=== PATIENT | female | born 1945 | race Caucasian/White ===

== ENCOUNTER 2019-02-07 10:02 | Emergency (ER) | payer MEDICARE, MEDICAID ==
--- NOTE | 2019-02-07 10:30 | ED.PDOC ---
History of Present Illness - General Chief Complaint: Respiratory Problem Stated Complaint: Hypoxemia and altered mental Time Seen by Provider: 02/07/19 10:27 Source: patient Exam Limitations: no limitations - History of Present Illness Comments: SHE IS BROUGHT BY AMBULANCE BECAUSE HER O2 SATURATIONS WERE IN THE LOW 89'S. SHE IS HOARSE BUT DENIES A SORE THROAT OR FEVER. SHE HAS DIABETES. ON ARRIVAL HER O2 SATS ARE 93-95 % A ROOM AIR. Timing/Duration: this morning Cough Quality/Degree: productive cough Possible Cause: no prior episodes Improving Factors: nothing Worsening Factors: nothing Associated Symptoms: denies symptoms Respiratory Risk Factors: no cause identified Allergies/Adverse Reactions: Allergies Eggs or Egg-derived Products Allergy (Verified 02/07/19 10:17) Home Medications: Ambulatory Orders Acetaminophen W/ Codeine [Tylenol W/ CODEINE #3] 1 ea PO Q4H PRN 02/07/19 Alum & Mag Hydrox-Simethicone [Maalox Max] 1 lida PO Q2H PRN 02/07/19 Amino Acids-Protein Hydrolysat [Pro-Stat] 17 gm PO BID 02/07/19 Artificial Tear Solution [Genteal Tears Liquid Drop 0.1-0.2-0.3 %] 1 vicenta OPHTH BID 02/07/19 Baclofen 10 mg PO PRN PRN 02/07/19 Cholecalciferol [D 1000] 1,000 unit PO DAILY 02/07/19 Docusate Sodium [Colace Cap] 100 mg PO DAILY 02/07/19 Emollient [Aquaphor Advanced Therapy] 41 % EX PRN PRN 02/07/19 Fenofibrate [Tricor] 145 mg PO DAILY 02/07/19 Ferrous Sulfate [Iron] 325 mg PO DAILY 02/07/19 Furosemide [Lasix] 20 mg PO DAILY #15 tab 02/07/19 Gabapentin 100 mg PO TID PRN 02/07/19 Hydrochlorothiazide 12.5 mg PO DAILY 02/07/19 Insulin Glargine [Basaglar Kwikpen] 75 unit SC BID 02/07/19 Insulin Lispro (Human) [Humalog] 100 unit SC PRN PRN 02/07/19 Ipratropium [place] 0.02 % INH PRN PRN 02/07/19 Lisinopril 10 mg PO DAILY 02/07/19 Magnesium Hydroxide [Rome Milk of Magnesia] 400 mg PO DAILY 02/07/19 Melatonin 5 mg PO DAILY 02/07/19 Multiple Vitamins W/ Minerals [Prosight] 1 tab PO BID 02/07/19 Nitroglycerin 0.4 mg Tab [Nitrostat] 0.4 mg SL PRN PRN 02/07/19 Omeprazole [Prilosec Cap] 20 mg PO TID 02/07/19 Potassium Chloride Tab [K-Dur] 20 meq PO DAILY #15 tab 02/07/19 Preparation H Suppository 1 ea VT Q6HR PRN 02/07/19 QUEtiapine FUMARATE [SEROquel] 25 mg PO DAILY 02/07/19 Quetiapine Fumarate 50 mg PO DAILY 02/07/19 Saxagliptin HCl [Onglyza] 2.5 mg PO DAILY 02/07/19 Sertraline HCl 100 mg PO DAILY 02/07/19 Tramadol HCl 50 mg PO Q4H PRN 02/07/19 Triamcinolone 0.1% Oint [Kenalog 0.1% Ointment] 1 applic TOP Q12H 02/07/19 diphenhydrAMINE HCL [Benadryl] 50 mg PO PRN PRN 02/07/19 Review of Systems - Review of Systems Constitutional: States: other - HOARSE EENTM: States: no symptoms reported Respiratory: States: cough Cardiology: States: no symptoms reported Gastrointestinal/Abdominal: States: no symptoms reported Genitourinary: States: no symptoms reported Musculoskeletal: States: no symptoms reported Skin: States: no symptoms reported Neurological: States: no symptoms reported Endocrine: States: no symptoms reported Hematologic/Lymphatic: States: no symptoms reported Past Medical History (General) - Patient Medical History Hx Stroke: No Hx of COPD: No Hx Congestive Heart Failure: No Hx Hypertension: Yes Hx Diabetes: Yes Surgical History: no surgical history - Vaccination History Hx Pneumococcal Vaccination: Yes Immunizations Up to Date: Yes - Social History Hx Tobacco Use: Yes Hx Alcohol Use: Yes Hx Substance Use: No Hx Substance Use Treatment: No Hx Depression: No - Activities of Daily Living Penitentiary[facility]Assisted Living (if applicable):: [facility] - Female History Patient is a Female of Child Bearing Age (10 -59 yrs old): No Patient : No Family Medical History - Family History Mother Family History: Unknown Living Status: Unknown Physical Exam - Physical Exam General Appearance: Alert, Well Developed Eye Exam: bilateral normal ENT Exam: normal ENT inspection, pharynx normal Neck: non-tender, full range of motion, supple, normal inspection Respiratory: chest non-tender, lungs clear, normal breath sounds, no respiratory distress, no accessory muscle use Cardiovascular/Chest: normal peripheral pulses, regular rate, rhythm, no edema, no gallop, no JVD, no murmur Gastrointestinal/Abdominal: normal bowel sounds, non tender, soft, no organomegaly, no pulsatile mass Extremity: normal range of motion, non-tender, normal inspection, no pedal edema Neurologic: alert, oriented x 3 Skin Exam: normal color Progress - Results/Orders Results/Orders: Laboratory Results WBC 8.5 K/mm3 (4.8-10.8) 02/07/19 10:40 RBC 4.29 M/mm3 (4.20-5.40) 02/07/19 10:40 Hgb 13.9 gm/dL (12.0-16.0) 02/07/19 10:40 Hct 41.8 % (36.0-47.0) 02/07/19 10:40 MCV 97.3 fl (81.0-99.0) 02/07/19 10:40 MCH 32.5 pg (27.0-31.0) H 02/07/19 10:40 MCHC 33.4 g/dL (33.0-37.0) 02/07/19 10:40 RDW 17.1 % (11.5-14.5) H 02/07/19 10:40 Plt Count 275 K/mm3 (130-400) 02/07/19 10:40 MPV 7.7 fl (7.40-10.4) 02/07/19 10:40 Absolute Neuts (auto) 7.10 K/uL (1.8-6.8) H 02/07/19 10:40 Absolute Lymphs (auto) 0.70 K/uL (1.0-3.4) L 02/07/19 10:40 Absolute Monos (auto) 0.70 K/uL (0.2-0.8) 02/07/19 10:40 Absolute Eos (auto) 0.10 K/uL (0.0-0.4) 02/07/19 10:40 Absolute Basos (auto) 0.00 K/uL (0.0-0.1) 02/07/19 10:40 Neutrophils % 82.8 % (42.0-78.0) H 02/07/19 10:40 Lymphocytes % 7.8 % (20.0-50.0) L 02/07/19 10:40 Monocytes % 7.8 % (2.0-9.0) 02/07/19 10:40 Eosinophils % 1.0 % (1.0-5.0) 02/07/19 10:40 Basophils % 0.6 % (0.0-2.0) 02/07/19 10:40 Sodium 138 mmol/L (135-145) 02/07/19 10:40 Potassium 3.7 mmol/L (3.6-5.0) 02/07/19 10:40 Chloride 97 mmol/L (101-111) L 02/07/19 10:40 Carbon Dioxide 28 mmol/L (21-31) 02/07/19 10:40 Anion Gap 16.7 (12-18) 02/07/19 10:40 BUN 29 mg/dL (7-18) H 02/07/19 10:40 Creatinine 1.34 mg/dL (0.6-1.3) H 02/07/19 10:40 BUN/Creatinine Ratio 21.6 (10-20) H 02/07/19 10:40 Random Glucose 99 mg/dL (70-105) 02/07/19 10:40 Serum Osmolality 281.5 mOsm/L (275-295) 02/07/19 10:40 Calcium 8.7 mg/dL (8.4-10.2) 02/07/19 10:40 Total Bilirubin 2.4 mg/dL (0.2-1.0) H* 02/07/19 10:40 AST 51 IU/L (10-42) H 02/07/19 10:40 ALT 28 IU/L (10-60) 02/07/19 10:40 Alkaline Phosphatase 196 IU/L (42-121) H 02/07/19 10:40 Serum Total Protein 8.2 gm/dL (6.4-8.2) 02/07/19 10:40 Albumin 3.3 g/dl (3.2-5.5) 02/07/19 10:40 Globulin 4.9 gm/dL (2.3-3.5) H 02/07/19 10:40 Albumin/Globulin Ratio 0.7 (1.1-1.9) L 02/07/19 10:40 THT CXT IS INCREASED VASCULAR MARKING, SUGGESTIVE OF CONGESTIVE HEART FAILURE. Departure - Departure Clinical Impression: Congestive heart failure (CHF) Qualifiers: Heart failure type: diastolic Heart failure chronicity: acute Qualified Code(s): I50.31 - Acute diastolic (congestive) heart failure Time of Disposition: 12:08 Disposition: Discharge to Home or Self Care Condition: Good Departure Forms: ED Discharge - Pt. Copy, Patient Portal Self Enrollment Instructions: Heart Failure, Adult Referrals: BROOKLYN ARIAS [Primary Care Provider] - 1-2 Weeks Prescriptions: Furosemide [Lasix] 20 mg PO DAILY #15 tab Potassium Chloride Tab [K-Dur] 20 meq PO DAILY #15 tab Home Medications: Ambulatory Orders Acetaminophen W/ Codeine [Tylenol W/ CODEINE #3] 1 ea PO Q4H PRN 02/07/19 Alum & Mag Hydrox-Simethicone [Maalox Max] 1 lida PO Q2H PRN 02/07/19 Amino Acids-Protein Hydrolysat [Pro-Stat] 17 gm PO BID 02/07/19 Artificial Tear Solution [Genteal Tears Liquid Drop 0.1-0.2-0.3 %] 1 vicenta OPHTH BID 02/07/19 Baclofen 10 mg PO PRN PRN 02/07/19 Cholecalciferol [D 1000] 1,000 unit PO DAILY 02/07/19 Docusate Sodium [Colace Cap] 100 mg PO DAILY 02/07/19 Emollient [Aquaphor Advanced Therapy] 41 % EX PRN PRN 02/07/19 Fenofibrate [Tricor] 145 mg PO DAILY 02/07/19 Ferrous Sulfate [Iron] 325 mg PO DAILY 02/07/19 Furosemide [Lasix] 20 mg PO DAILY #15 tab 02/07/19 Gabapentin 100 mg PO TID PRN 02/07/19 Hydrochlorothiazide 12.5 mg PO DAILY 02/07/19 Insulin Glargine [Basaglar Kwikpen] 75 unit SC BID 02/07/19 Insulin Lispro (Human) [Humalog] 100 unit SC PRN PRN 02/07/19 Ipratropium [place] 0.02 % INH PRN PRN 02/07/19 Lisinopril 10 mg PO DAILY 02/07/19 Magnesium Hydroxide [[place] Milk of Magnesia] 400 mg PO DAILY 02/07/19 Melatonin 5 mg PO DAILY 02/07/19 Multiple Vitamins W/ Minerals [Prosight] 1 tab PO BID 02/07/19 Nitroglycerin 0.4 mg Tab [Nitrostat] 0.4 mg SL PRN PRN 02/07/19 Omeprazole [Prilosec Cap] 20 mg PO TID 02/07/19 Potassium Chloride Tab [K-Dur] 20 meq PO DAILY #15 tab 02/07/19 Preparation H Suppository 1 ea VT Q6HR PRN 02/07/19 QUEtiapine FUMARATE [SEROquel] 25 mg PO DAILY 02/07/19 Quetiapine Fumarate 50 mg PO DAILY 02/07/19 Saxagliptin HCl [Onglyza] 2.5 mg PO DAILY 02/07/19 Sertraline HCl 100 mg PO DAILY 02/07/19 Tramadol HCl 50 mg PO Q4H PRN 02/07/19 Triamcinolone 0.1% Oint [Kenalog 0.1% Ointment] 1 applic TOP Q12H 02/07/19 diphenhydrAMINE HCL [Benadryl] 50 mg PO PRN PRN 02/07/19 Additional Instructions: FOLLOW UP WITH YOUR DOCTOR IN ONE WEEK.
--- NOTE | 2019-02-07 11:10 | RAD ---
EXAM DESCRIPTION: Chest,1 View CLINICAL HISTORY: 73 years Female, SOB COMPARISON: None. TECHNIQUE: Single frontal view of the chest. IMPRESSION: Cardiac silhouette is enlarged. Aorta is partially opacified. Severe bilateral perihilar fullness likely reflecting underlying vascular congestion. Coarse interstitial lung markings may represent pulmonary edema. No lobar consolidation. No pleural effusion or pneumothorax. Thoracic spondylosis. Electronically signed by: Lele Brown MD 02/07/2019 11:07 AM CDT
[2019-02-07] MEDS ORDERED: FUROSEMIDE INJ 20 MG/2 ML VIAL IV ONE (11:34)
[2019-02-07 13:55] VITALS: BP 139/73; TEMP 96.3; O2SAT 94
== END 2019-02-07 13:55 ==
LOC: ER 10:02
DX: I50.31 Acute diastolic (congestive) heart failure (principal); E11.9 Type 2 diabetes mellitus without complications; I10 Essential (primary) hypertension; Z87.891 Personal history of nicotine dependence; Z79.899 Other long term (current) drug therapy; Z79.4 Long term (current) use of insulin
CPT/HCPCS: 36415; 71045; 80053; 85025; J1940

== ENCOUNTER 2019-02-10 13:02 | Inpatient (IN) | payer MEDICARE, MEDICAID ==
[2019-02-10] MEDS ORDERED: IPRATROPIUM/ALBUTEROL 3 ML VIAL NEB ONE (13:13)
[2019-02-10] MEDS ORDERED: FUROSEMIDE INJ 40 MG/4 ML VIAL IV ONE (13:13)
--- NOTE | 2019-02-10 13:29 | ED.PDOC ---
History of Present Illness - General Chief Complaint: Respiratory Problem Stated Complaint: Shortness of breath Time Seen by Provider: 02/10/19 13:13 Source: patient, EMS Exam Limitations: no limitations - History of Present Illness Initial Comments: patient is brought in via EMS for shortness of breath and hypoxia down to the 70s. Patient states she started getting very short of breath this morning with cough with nonproductive sputum. She has a long history of having CHF, COPD, diabetes mellitus, and history of TIA. Patient states she came to the long term last July after her son moved away and she didn't have as much help at home. She does not normally require oxygen but does use breathing treatments. Her last breathing treatments for yesterday at the long term. Patient denies any fever or chills. She's had no chest pain but some shortness of breath with wheezing and she has noted that she's been more edematous than usual. Timing/Duration: 4-6 hours Severity: severe Activities at Onset: rest Possible Cause: frequent episodes Improving Factors: other - oxygen Worsening Factors: movement Associated Symptoms: cough, edema Allergies/Adverse Reactions: Allergies Eggs or Egg-derived Products Allergy (Verified 02/07/19 10:17) Home Medications: Ambulatory Orders Acetaminophen W/ Codeine [Tylenol W/ CODEINE #3] 1 ea PO Q4H PRN 02/07/19 Alum & Mag Hydrox-Simethicone [Maalox Max] 1 lida PO Q2H PRN 02/07/19 Amino Acids-Protein Hydrolysat [Pro-Stat] 17 gm PO BID 02/07/19 Artificial Tear Solution [Genteal Tears Liquid Drop 0.1-0.2-0.3 %] 1 vicenta OPHTH BID 02/07/19 Baclofen 10 mg PO PRN PRN 02/07/19 Cholecalciferol [D 1000] 1,000 unit PO DAILY 02/07/19 Docusate Sodium [Colace Cap] 100 mg PO DAILY 02/07/19 Emollient [Aquaphor Advanced Therapy] 41 % EX PRN PRN 02/07/19 Fenofibrate [Tricor] 145 mg PO DAILY 02/07/19 Ferrous Sulfate [Iron] 325 mg PO DAILY 02/07/19 Furosemide [Lasix] 20 mg PO DAILY #15 tab 02/07/19 Gabapentin 100 mg PO TID PRN 02/07/19 Hydrochlorothiazide 12.5 mg PO DAILY 02/07/19 Insulin Glargine [Basaglar Kwikpen] 75 unit SC BID 02/07/19 Insulin Lispro (Human) [Humalog] 100 unit SC PRN PRN 02/07/19 Ipratropium [place] 0.02 % INH PRN PRN 02/07/19 Lisinopril 10 mg PO DAILY 02/07/19 Magnesium Hydroxide [[place]ome Milk of Magnesia] 400 mg PO DAILY 02/07/19 Melatonin 5 mg PO DAILY 02/07/19 Multiple Vitamins W/ Minerals [Prosight] 1 tab PO BID 02/07/19 Nitroglycerin 0.4 mg Tab [Nitrostat] 0.4 mg SL PRN PRN 02/07/19 Omeprazole [Prilosec Cap] 20 mg PO TID 02/07/19 Potassium Chloride Tab [K-Dur] 20 meq PO DAILY #15 tab 02/07/19 Preparation H Suppository 1 ea [place] Q6HR PRN 02/07/19 QUEtiapine FUMARATE [SEROquel] 25 mg PO DAILY 02/07/19 Quetiapine Fumarate 50 mg PO DAILY 02/07/19 Saxagliptin HCl [Onglyza] 2.5 mg PO DAILY 02/07/19 Sertraline HCl 100 mg PO DAILY 02/07/19 Tramadol HCl 50 mg PO Q4H PRN 02/07/19 Triamcinolone 0.1% Oint [Kenalog 0.1% Ointment] 1 applic TOP Q12H 02/07/19 diphenhydrAMINE HCL [Benadryl] 50 mg PO PRN PRN 02/07/19 Review of Systems - Review of Systems Constitutional: States: no symptoms reported. Denies: chills, fever EENTM: States: no symptoms reported. Denies: ear pain, nose congestion, throat pain Respiratory: States: cough, short of breath, wheezing Cardiology: States: edema. Denies: chest pain, palpitations Gastrointestinal/Abdominal: States: no symptoms reported. Denies: abdominal pain, diarrhea, nausea, vomiting Genitourinary: States: no symptoms reported Musculoskeletal: States: no symptoms reported Past Medical History (General) - Patient Medical History Hx Stroke: Yes - TIA Hx of COPD: Yes Hx Congestive Heart Failure: Yes Hx Hypertension: Yes Hx Diabetes: Yes - Vaccination History Hx Pneumococcal Vaccination: Yes - Social History Hx Tobacco Use: Yes Hx Alcohol Use: Yes Hx Substance Use: No Hx Substance Use Treatment: No Hx Depression: No - Activities of Daily Living Senior Living/Assisted Living (if applicable):: [facility] - Female History Patient : No Family Medical History - Family History Mother Family History: Unknown Living Status: Unknown Physical Exam - Physical Exam General Appearance: Alert, Comfortable, Obese Eyes, Ears, Nose, Throat Exam: PERRL/EOMI, normal ENT inspection, TMs normal, pharynx normal, other - eyes are edematous Neck: non-tender, full range of motion, supple, normal inspection Respiratory: chest non-tender, decreased breath sounds, crackles - at bases bilaterally, wheezing Cardiovascular/Chest: normal peripheral pulses, regular rate, rhythm, JVD, other - 3 + pitting edema to knee Peripheral Pulses: radial,right: 2+, radial,left: 2+ Gastrointestinal/Abdominal: normal bowel sounds, non tender, soft Neurologic: alert, oriented x 3 Progress - Results/Orders Results/Orders: 02/10/19 13:13 Catheter:Miguel QSHIFT B-TYPE NATRIURETIC PEPTIDE/BNP Stat CARDIAC ENZYME GROUP Stat COMPLETE METABOLIC PROFILE Stat 02/10/19 13:14 URINALYSIS Stat 02/10/19 13:45 EKG STAT Laboratory Results WBC 10.0 K/mm3 (4.8-10.8) 02/10/19 13:13 RBC 4.29 M/mm3 (4.20-5.40) 02/10/19 13:13 Hgb 13.6 gm/dL (12.0-16.0) 02/10/19 13:13 Hct 40.9 % (36.0-47.0) 02/10/19 13:13 MCV 95.4 fl (81.0-99.0) 02/10/19 13:13 MCH 31.8 pg (27.0-31.0) H 02/10/19 13:13 MCHC 33.3 g/dL (33.0-37.0) 02/10/19 13:13 RDW 17.2 % (11.5-14.5) H 02/10/19 13:13 Plt Count 302 K/mm3 (130-400) 02/10/19 13:13 MPV 7.4 fl (7.40-10.4) 02/10/19 13:13 Absolute Neuts (auto) 8.90 K/uL (1.8-6.8) H 02/10/19 13:13 Absolute Lymphs (auto) 0.40 K/uL (1.0-3.4) L 02/10/19 13:13 Absolute Monos (auto) 0.60 K/uL (0.2-0.8) 02/10/19 13:13 Absolute Eos (auto) 0.00 K/uL (0.0-0.4) 02/10/19 13:13 Absolute Basos (auto) 0.00 K/uL (0.0-0.1) 02/10/19 13:13 Neutrophils % 89.2 % (42.0-78.0) H 02/10/19 13:13 Lymphocytes % 4.0 % (20.0-50.0) L 02/10/19 13:13 Monocytes % 6.5 % (2.0-9.0) 02/10/19 13:13 Eosinophils % 0.0 % (1.0-5.0) L 02/10/19 13:13 Basophils % 0.3 % (0.0-2.0) 02/10/19 13:13 Sodium 135 mmol/L (135-145) 02/10/19 13:13 Potassium 4.0 mmol/L (3.6-5.0) 02/10/19 13:13 Chloride 94 mmol/L (101-111) L 02/10/19 13:13 Carbon Dioxide 28 mmol/L (21-31) 02/10/19 13:13 Anion Gap 17.0 (12-18) 02/10/19 13:13 BUN 26 mg/dL (7-18) H 02/10/19 13:13 Creatinine 0.88 mg/dL (0.6-1.3) 02/10/19 13:13 BUN/Creatinine Ratio 29.5 (10-20) H 02/10/19 13:13 Random Glucose 174 mg/dL (70-105) H 02/10/19 13:13 Serum Osmolality 279.1 mOsm/L (275-295) 02/10/19 13:13 Calcium 8.4 mg/dL (8.4-10.2) 02/10/19 13:13 Total Bilirubin 2.9 mg/dL (0.2-1.0) H* 02/10/19 13:13 AST 47 IU/L (10-42) H 02/10/19 13:13 ALT 29 IU/L (10-60) 02/10/19 13:13 Alkaline Phosphatase 198 IU/L (42-121) H 02/10/19 13:13 Creatine Kinase 100 IU/L (26-140) 02/10/19 13:13 CK-MB (CK-2) 5.6 ng/mL (0.0-4.4) H* 02/10/19 13:13 CK-MB (CK-2) % Not Reportable 02/10/19 13:13 Troponin I 0.05 ng/mL (0.01-0.05) 02/10/19 13:13 Serum Total Protein 7.5 gm/dL (6.4-8.2) 02/10/19 13:13 Albumin 2.8 g/dl (3.2-5.5) L 02/10/19 13:13 Globulin 4.7 gm/dL (2.3-3.5) H 02/10/19 13:13 Albumin/Globulin Ratio 0.6 (1.1-1.9) L 02/10/19 13:13 Patient Name: BRE DEJESUS Gender: Female Date of : 1945 Referring Physician: TORY CASE Organization: [facility] Accession Number: [id number] Requested Date: February 10, 2019 13:13 Report Status: Final Requested Procedure: 1 Procedure Description: Chest,1 View Modality: CR Findings Reporting MD: Glenis Avery Fellow MD: Not available Dictation Time: Donation Worker: Not available Inhalation Therapy Teacher Date: EXAM DESCRIPTION: Chest,1 View CLINICAL HISTORY: 73 years Female shortness of breath COMPARISON: Portable chest 02/07/2019 TECHNIQUE: Portable AP view of the chest is obtained. Heart: Allowing for magnification factors related to AP portable technique and large body habitus , the heart is mildly enlarged. Vasculature: There is mild tortuosity and atherosclerosis of the aorta. There is no evidence of aortic aneurysm or acute findings. The pulmonary vascularity is normal. Mediastinum: There is a round masslike density in the right hilum which measures 2.3 cm x 2.3 cm. This may represent pulmonary vascular structures on end. A small mass or adenopathy in the right hilum is not excludable. Lungs: There is no focal consolidation in the lungs. Pleura: There is blunting of the right costophrenic angle consistent with scarring or a small pleural effusion. There is no left pleural fluid. There are no pneumothoraces. Osseous structures: Radiology [facility]. [address] [place] [address], [address] Floor [place], [place] T [phone] [email or web address] Report exported on SatFeb 10, 2019 14:09:46 [id number] - Page 2 of 2 There is no evidence of acute fracture, osseous destruction or osteoblastic lesions. There are diffuse enthesopathic changes including a rolling pattern of ossification in the thoracic spine consistent with diffuse idiopathic skeletal hyperostosis (DISH). Tubes and catheters: None Upper abdomen: No acute findings. Chest wall: Unremarkable. IMPRESSION: Mild cardiomegaly and right pleural fluid may indicate fluid overload/congestive heart failure. There is a round masslike density in the right hilum which measures 2.3 cm x 2.3 cm. This may represent pulmonary vascular structures on end. A small mass or adenopathy in the right hilum is not excludable. Recommend comparison to remote previous films to assess chronicity. Remainder of findings as described above - EKG/XRAY/CT EKG: Sinus, Tachy Comments: HR 105, normal QTC, intraventricular block Departure - Departure Clinical Impression: Congestive heart failure (CHF) Qualifiers: Heart failure type: systolic Heart failure chronicity: acute on chronic Qualified Code(s): I50.23 - Acute on chronic systolic (congestive) heart failure Disposition: Admit Patient Condition: Fair Departure Forms: ED Discharge - Pt. Copy, Patient Portal Self Enrollment Referrals: BROOKLYN ARIAS [Primary Care Provider] - 1-2 Weeks Home Medications: Ambulatory Orders Acetaminophen W/ Codeine [Tylenol W/ CODEINE #3] 1 ea PO Q4H PRN 02/07/19 Alum & Mag Hydrox-Simethicone [Maalox Max] 1 lida PO Q2H PRN 02/07/19 Amino Acids-Protein Hydrolysat [Pro-Stat] 17 gm PO BID 02/07/19 Artificial Tear Solution [Genteal Tears Liquid Drop 0.1-0.2-0.3 %] 1 vicenta OPHTH BID 02/07/19 Baclofen 10 mg PO PRN PRN 02/07/19 Cholecalciferol [D 1000] 1,000 unit PO DAILY 02/07/19 Docusate Sodium [Colace Cap] 100 mg PO DAILY 02/07/19 Emollient [Aquaphor Advanced Therapy] 41 % EX PRN PRN 02/07/19 Fenofibrate [Tricor] 145 mg PO DAILY 02/07/19 Ferrous Sulfate [Iron] 325 mg PO DAILY 02/07/19 Furosemide [Lasix] 20 mg PO DAILY #15 tab 02/07/19 Gabapentin 100 mg PO TID PRN 02/07/19 Hydrochlorothiazide 12.5 mg PO DAILY 02/07/19 Insulin Glargine [Basaglar Kwikpen] 75 unit SC BID 02/07/19 Insulin Lispro (Human) [Humalog] 100 unit SC PRN PRN 02/07/19 Ipratropium [place] 0.02 % INH PRN PRN 02/07/19 Lisinopril 10 mg PO DAILY 02/07/19 Magnesium Hydroxide [[place] Milk of Magnesia] 400 mg PO DAILY 02/07/19 Melatonin 5 mg PO DAILY 02/07/19 Multiple Vitamins W/ Minerals [Prosight] 1 tab PO BID 02/07/19 Nitroglycerin 0.4 mg Tab [Nitrostat] 0.4 mg SL PRN PRN 02/07/19 Omeprazole [Prilosec Cap] 20 mg PO TID 02/07/19 Potassium Chloride Tab [K-Dur] 20 meq PO DAILY #15 tab 02/07/19 Preparation H Suppository 1 ea [place] Q6HR PRN 02/07/19 QUEtiapine FUMARATE [SEROquel] 25 mg PO DAILY 02/07/19 Quetiapine Fumarate 50 mg PO DAILY 02/07/19 Saxagliptin HCl [Onglyza] 2.5 mg PO DAILY 02/07/19 Sertraline HCl 100 mg PO DAILY 02/07/19 Tramadol HCl 50 mg PO Q4H PRN 02/07/19 Triamcinolone 0.1% Oint [Kenalog 0.1% Ointment] 1 applic TOP Q12H 02/07/19 diphenhydrAMINE HCL [Benadryl] 50 mg PO PRN PRN 02/07/19 Decision To Admit - Decistion To Admit Decision to Admit Reason: Admit from ER Decision to Admit Date: 02/10/19 Decision to Admit Time: 14:26
--- NOTE | 2019-02-10 13:49 | RAD ---
EXAM DESCRIPTION: Chest,1 View CLINICAL HISTORY: 73 years Female shortness of breath COMPARISON: Portable chest 02/07/2019 TECHNIQUE: Portable AP view of the chest is obtained. Heart: Allowing for magnification factors related to AP portable technique and large body habitus , the heart is mildly enlarged. Vasculature: There is mild tortuosity and atherosclerosis of the aorta. There is no evidence of aortic aneurysm or acute findings. The pulmonary vascularity is normal. Mediastinum: There is a round masslike density in the right hilum which measures 2.3 cm x 2.3 cm. This may represent pulmonary vascular structures on end. A small mass or adenopathy in the right hilum is not excludable. Lungs: There is no focal consolidation in the lungs. Pleura: There is blunting of the right costophrenic angle consistent with scarring or a small pleural effusion. There is no left pleural fluid. There are no pneumothoraces. Osseous structures: There is no evidence of acute fracture, osseous destruction or osteoblastic lesions. There are diffuse enthesopathic changes including a rolling pattern of ossification in the thoracic spine consistent with diffuse idiopathic skeletal hyperostosis (DISH). Tubes and catheters: None Upper abdomen: No acute findings. Chest wall: Unremarkable. IMPRESSION: Mild cardiomegaly and right pleural fluid may indicate fluid overload/congestive heart failure. There is a round masslike density in the right hilum which measures 2.3 cm x 2.3 cm. This may represent pulmonary vascular structures on end. A small mass or adenopathy in the right hilum is not excludable. Recommend comparison to remote previous films to assess chronicity. Remainder of findings as described above. Electronically signed by: Glenis Avery MD 02/10/2019 1:46 PM CDT
--- NOTE | 2019-02-10 15:15 | HP ---
SUPERVISING PHYSICIAN: Maxx Chaudhari MD CHIEF COMPLAINT: Shortness of breath. HISTORY OF PRESENT ILLNESS: This is a 73 year-old female patient who lives at [facility]. She has had about a 2 to 3 day history of shortness of breath. She is oxygen dependent and a history of chronic obstructive pulmonary disease and congestive heart failure. She also is a current smoker. She said her symptoms were mild at first but today she just "can't breathe." She also complains of her legs being slightly swollen and she has needed her oxygen 24 yours a day over the past 2 days. She normally just wears it at night or as needed. She moved to [place] in July of 2018. She had lived in [facility] because her son lived at [facility] but her son now lives in [place] and she states she is not going to move again. Her primary care physician is Dr. Hernandez. At the group home, her oxygen saturations were reported to be in the 70s and upon arrival to the Emergency Room her 02 saturation was 86%. Her heart rate was 109 with a respiratory rate at 24. In the Emergency Room, she received several breathing treatments and her lab was obtained. WBCs are 10 with hemoglobin of 13.6 and hematocrit 40.9. She does have a left shift on her differential. Sodium 135, potassium 4, chloride 94, carbon dioxide 28, BUN 26, creatinine 0.88, glucose 174, bilirubin 2.9 with a direct bilirubin of 1.7 and indirect bilirubin of 1.3. AST is 47, ALT is 29, alkaline phosphatase 198. CKMB 5.6, BNP 999, albumin 2.8. Urinalysis shows small amount of urine blood with 2 urine bilirubin, trace urine leukocyte esterase, 3 to 5 urine RBCs and 3 to 5 urine WBCs. Chest x-ray shows mild cardiomegaly and right pleural fluid may indicate fluid overload, congestive heart failure. There is a round mass-like density in the right hilum measuring 2.3 x 2.3 cm. It may represent pulmonary vascular structures, a small mass or adenopathy in the right hilum is not excluded. Recommend comparison to previous films. She was given Lasix in the Emergency Room as well as breathing treatments and continued on oxygen. I was called for hospital admission. PAST MEDICAL HISTORY: 1. Congestive heart failure of unknown etiology. She does not have a local director of assisted living, although she does have an appointment with one in February, does not know his name. 2. Chronic obstructive pulmonary disease in a chronic smoker. 3. Coronary artery disease. 4. Hypertension. 5. Diabetes mellitus type 2. 6. History of transient ischemic attack. PAST SURGICAL HISTORY: No surgeries. CURRENT MEDICATIONS: Per the EMR and awaiting verification. ALLERGIES: Eggs or egg products. FAMILY HISTORY: Unknown. SOCIAL HISTORY: She moved to [place] from [place], [place] in July of 2018. She is a resident of [facility]. She is a . She smokes approximately one pack of cigarettes daily and has since she was young. She previously drank alcohol socially but has not had an alcoholic beverage since being in [facility] and there is no history of illicit drug use. REVIEW OF SYSTEMS: GENERAL: Negative for fever, fatigue or weight changes, sore throat or sinus symptoms. HEENT: Negative for ear pain, vision changes RESPIRATORY: Positive for shortness of breath, wheezing and coughing. CARDIAC: Negative for chest pain, palpitations or tachycardia. GI: Negative for abdominal pain, nausea, vomiting, diarrhea or constipation. : Negative for hematuria, dysuria, polyuria. MUSCULOSKELETAL: Negative for arthralgias, myalgias. NEURO: Negative for headaches, dizziness or seizures. PHYSICAL EXAMINATION: VITAL SIGNS: Temperature 98, heart rate 108, blood pressure 134/85, respiratory rate 22, 02 saturation 91% on 2 liters nasal cannula. GENERAL: This is a 73 year-old female patient who is sitting up in her chair in her room. She is obese. She is in mild respiratory distress. HEENT: Normocephalic and atraumatic. Pupils are equal and reactive. Oropharynx is clear. NECK: Supple without mass. There is no discernible jugular venous distention. CHEST: Diminished breath sounds throughout. She does have scattered crackles and some very mild expiratory wheezing. CARDIOVASCULAR: Regular rate and rhythm, although at times she is tachycardic. ABDOMEN: Soft, nondistended, non-tender. Bowel sounds are positive. EXTREMITIES: No cyanosis or clubbing. She does have +3 pitting edema from her mid lower legs to her ankles. NEUROLOGIC: She is awake, alert, and oriented x3. LABORATORY: As per the history of present illness. ASSESSMENT: 1. Acute exacerbation of congestive heart failure, unknown etiology and no current echocardiogram on the chart to review. 2. Shortness of breath in a patient with chronic obstructive pulmonary disease, although most likely her shortness of breath is due to #1. Cannot exclude a mild exacerbation of her chronic obstructive pulmonary disease as well as concerns for a healthcare acquired pneumonia. The patient is a current smoker and oxygen dependent. 3. Hyperbilirubinemia as well as elevated liver enzymes. She has no complaints of abdominal pain or history of any liver disease. She has had a previous elevated bilirubin per EMR records. 4. Mild urinary tract infection. 5. Diabetes mellitus. 6. Hypertension. 7. History of transient ischemic attack. PLAN: We will admit the patient to the hospital. She will be on the congestive heart failure guideline and I have given her some IV Lasix. She is on a kristian inhibitor but she is not on a beat jasmyne at this time. She is also on diuretics. It may be helpful to get an echocardiogram from Dr. Hernandez's office but if there is not one, she will definitely need an echocardiogram. I will go ahead and treat her for her urinary tract infection with some Rocephin. I have ordered a culture on the urine that we sent. At this time, she is not showing any signs or symptoms of early pneumonia or an acute exacerbation of chronic obstructive pulmonary disease but hopefully with good aggressive hygiene, that will not be an issue but we will watch her chest x-rays and labs. We discussed smoking cessation. I have also started the patient on a PPI for ulcer prophylaxis as well as Lovenox for DVT prophylaxis and will continue to monitor closely and follow as needed. #[id number] MTDD
[2019-02-10] MEDS ORDERED: SODIUM CHLORIDE 0.9% (FLUSH) 10 ML SYG IV PRN (15:53)
[2019-02-10] MEDS ORDERED: ALBUTEROL SULFATE 2.5 MG/3 ML VIAL NEB PRN (15:53)
[2019-02-10] MEDS ORDERED: NITROGLYCERIN 0.4 MG 25 EA TAB SL PRN (15:53)
[2019-02-10] MEDS ORDERED: IV SET AND CAP CHANGE INJ INJ SCH (16:00)
[2019-02-10] MEDS ORDERED: GLUCAGON INJ 1 MG VIAL SUBCU PRN (16:02)
[2019-02-10] MEDS: INSULIN LISPRO 100 UNITS/ML PEN SUBCU SCH ×2 (16:30→21:29)
[2019-02-10] MEDS: FUROSEMIDE INJ 40 MG/4 ML VIAL IV SCH (16:39)
[2019-02-10] MEDS: IPRATROPIUM/ALBUTEROL 3 ML VIAL NEB SCH ×2 (17:24→20:50)
[2019-02-10] MEDS: MELATONIN 3 MG TAB PO SCH (20:43)
[2019-02-10] MEDS: SODIUM CHLORIDE 0.9% (FLUSH) 10 ML SYG IV SCH (20:44)
[2019-02-10] MEDS: ENOXAPARIN SODIUM 40 MG/0.4 ML SYG SUBCU SCH (20:44)
[2019-02-10] MEDS: QUEtiapine FUMARATE 25 MG TAB PO SCH (20:44)
[2019-02-10] MEDS: GABAPENTIN 100 MG CAP PO SCH (20:44)
[2019-02-10] MEDS: INSULIN GLARGINE 75 UNIT SC SCH (21:31)
[2019-02-10] MEDS ORDERED: cefTRIAXone SODIUM 1 GM VIAL ONE (22:27)
[2019-02-10] MEDS ORDERED: SODIUM CHL 0.9% 50ML MIN-BAG+ 50 ML IVPB ONE (22:28)
[2019-02-10] MEDS: cefTRIAXone SODIUM 1 GM in SODIUM CHL 0.9% 50ML MIN-BAG+ 50 ML IVPB SCH (22:31)
[2019-02-10] MEDS: traMADol HCL 50 MG TAB PO PRN (22:45)
[2019-02-11] MEDS: PANTOPRAZOLE SODIUM IV 40 MG VIAL IV SCH (06:02)
--- NOTE | 2019-02-11 06:49 | RAD ---
EXAM: XR Chest, 2 Views CLINICAL HISTORY: The patient is 73 years old and is Female; CHF TECHNIQUE: Frontal and lateral views of the chest. COMPARISON: No relevant prior studies available. FINDINGS: LUNGS: Diffuse interstitial opacities are noted throughout the lungs. Suggested prominence of the right hilar region, likely representing pulmonary artery. PLEURAL SPACE: Unremarkable. No pneumothorax. HEART: The cardiac silhouette is enlarged. MEDIASTINUM: Unremarkable. BONES/JOINTS: There are degenerative changes of the bones. VASCULATURE: Prominence of central vasculature is present. Atherosclerosis of the aorta is noted. IMPRESSION: 1. Cardiomegaly with findings suggestive of mild interstitial edema. 2. Prominence of the right hilar region, likely representing enlarged pulmonary artery. However, adenopathy or mass is not completely excluded. Recommend continued follow-up. Electronically signed by: Saumya Hernandez MD 02/11/2019 6:45 AM CDT
[2019-02-11] MEDS: INSULIN LISPRO 100 UNITS/ML PEN SUBCU SCH ×4 (07:12→21:54)
[2019-02-11] MEDS: POTASSIUM CHLORIDE 20 MEQ TAB PO SCH (07:53)
[2019-02-11] MEDS: IPRATROPIUM/ALBUTEROL 3 ML VIAL NEB SCH ×4 (08:48→20:10)
[2019-02-11] MEDS ORDERED: SAXAGLIPTIN HCL 2.5 MG PO SCH (09:00)
[2019-02-11] MEDS: INSULIN GLARGINE 75 UNIT SC SCH (09:26)
[2019-02-11] MEDS: FUROSEMIDE INJ 40 MG/4 ML VIAL IV SCH ×2 (09:27→16:43)
[2019-02-11] MEDS: LISINOPRIL 10 MG TAB PO SCH (09:28)
[2019-02-11] MEDS: GABAPENTIN 100 MG CAP PO SCH ×3 (09:28→21:04)
[2019-02-11] MEDS: SERTRALINE HCL 50 MG TAB PO SCH (09:28)
[2019-02-11] MEDS: QUEtiapine FUMARATE 25 MG TAB PO SCH ×2 (09:28→21:04)
[2019-02-11] MEDS: SODIUM CHLORIDE 0.9% (FLUSH) 10 ML SYG IV SCH ×2 (09:29→21:04)
[2019-02-11] MEDS ORDERED: MAGNESIUM SULFATE PREMIX 2GM 2 GM in PREMIX BAG 1 BAG IVPB ONE (11:10)
[2019-02-11] MEDS ORDERED: POTASSIUM CHLORIDE 20 MEQ TAB PO ONE (11:10)
[2019-02-11] MEDS ORDERED: MAGNESIUM SULFATE PREMIX 2GM 50 ML IVPB ONE (13:46)
--- NOTE | 2019-02-11 13:54 | PN ---
DATE: 02/11/19 SUPERVISING PHYSICIAN: Maxx Chaudhari M.D. SUBJECTIVE: The patient is sitting up in her chair. She has no complaints except she is short of breath with exertion, but it has improved. She reported that she has multiple abrasions on her abdomen most likely due to her picking at them. She does admit that she does that quite frequently. Otherwise no complaints of nausea, vomiting, chest pain. OBJECTIVE: VITAL SIGNS: Temperature 98, heart rate 89, blood pressure 153/91, respiratory rate 18, O2 sat 92% on 2 liters nasal cannula. Intake and output shows 3.5 liters negative balance. RESPIRATORY: Slightly diminished at the bases with a few fine scattered crackles. CARDIAC: Regular rate and rhythm. GASTROINTESTINAL: Abdomen is soft, nondistended, non-tender. SKIN: She does have multiple abrasions and scratch frances on her abdomen that have some redness surrounding the area. No drainage noted. NEUROLOGIC: She is awake, alert and oriented times three. LABORATORY: CBC is basically unremarkable except she does have a left shift on differential. Blood sugars have run between 124 and 243. Potassium is slightly low at 3.4 with chloride 91, BUN 25, creatinine 0.85, calcium 8.2, magnesium 1.4. Total bilirubin has improved slightly today to 2.5, alkaline phosphatase 169. Urine culture is pending. Chest x-ray: 1. Cardiomegaly with findings suggestive of mild interstitial edema. 2. Prominence of the right hilar region likely representing enlarged pulmonary artery, however adenopathy or mass is not completely excluded. Recommend continued followup. All other labs and films have been reviewed via the EMR. ASSESSMENT: 1. Acute exacerbation of congestive heart failure, unknown etiology and no current echocardiogram on the chart to review. 2. Shortness of breath in a patient with chronic obstructive pulmonary disease, although most likely her shortness of breath is due to #1. Cannot exclude a mild exacerbation of her chronic obstructive pulmonary disease as well as concerns for a healthcare acquired pneumonia. The patient is a current smoker and oxygen dependent. 3. Hyperbilirubinemia as well as elevated liver enzymes. She has no complaints of abdominal pain or history of any liver disease. She has had a previous elevated bilirubin per EMR records. 4. Mild urinary tract infection. 5. Diabetes mellitus. 6. Hypertension. 7. History of transient ischemic attack. 8. A 2.3 cm x 2.3 cm possible mass noted per chest x-ray. Will do a CT of the chest tomorrow for followup. PLAN: We will continue present supportive care. I have made her NPO at midnight and she will have an abdominal sonogram tomorrow as well as an abdominal/pelvis CT. I will also do chest CT due to the possible mass in her chest. I have given her magnesium and potassium replacement. Will continue her Rocephin and monitor her cultures. Will repeat lab in the morning. Will continue to follow her closely and treat as needed. #[id number] MTDD
[2019-02-11] MEDS: traMADol HCL 50 MG TAB PO PRN (14:31)
[2019-02-11] MEDS ORDERED: SODIUM CHL 0.9% 50ML MIN-BAG+ 50 ML IVPB ONE (20:37)
[2019-02-11] MEDS ORDERED: cefTRIAXone SODIUM 1 GM VIAL ONE (20:37)
[2019-02-11] MEDS: ENOXAPARIN SODIUM 40 MG/0.4 ML SYG SUBCU SCH (21:03)
[2019-02-11] MEDS: MELATONIN 3 MG TAB PO SCH (21:04)
[2019-02-11] MEDS: INSULIN DETEMIR 100 UNITS/ML PEN SUBCU SCH (21:53)
[2019-02-11] MEDS: cefTRIAXone SODIUM 1 GM in SODIUM CHL 0.9% 50ML MIN-BAG+ 50 ML IVPB SCH (22:46)
[2019-02-12] MEDS: PANTOPRAZOLE SODIUM IV 40 MG VIAL IV SCH (06:13)
[2019-02-12] MEDS: DEXTROSE 50% 25 GM/50 ML SYG IV PRN ×3 (06:31→11:41)
[2019-02-12] MEDS: INSULIN LISPRO 100 UNITS/ML PEN SUBCU SCH ×4 (07:33→21:08)
[2019-02-12] MEDS: FUROSEMIDE INJ 40 MG/4 ML VIAL IV SCH ×2 (08:13→16:50)
[2019-02-12] MEDS: QUEtiapine FUMARATE 25 MG TAB PO SCH ×2 (08:13→20:35)
[2019-02-12] MEDS: SERTRALINE HCL 50 MG TAB PO SCH (08:14)
[2019-02-12] MEDS: GABAPENTIN 100 MG CAP PO SCH ×3 (08:14→20:35)
[2019-02-12] MEDS: LISINOPRIL 10 MG TAB PO SCH (08:14)
[2019-02-12] MEDS: POTASSIUM CHLORIDE 20 MEQ TAB PO SCH (08:14)
[2019-02-12] MEDS: INSULIN DETEMIR 100 UNITS/ML PEN SUBCU SCH (08:15)
[2019-02-12] MEDS: SODIUM CHLORIDE 0.9% (FLUSH) 10 ML SYG IV SCH ×2 (08:16→20:35)
[2019-02-12] MEDS: NYSTATIN POWDER 15GM BTTL TOP SCH ×4 (08:17→20:35)
[2019-02-12] MEDS: IPRATROPIUM/ALBUTEROL 3 ML VIAL NEB SCH ×4 (08:19→20:49)
[2019-02-12] MEDS ORDERED: MAGNESIUM SULFATE PREMIX 2GM 2 GM in PREMIX BAG 1 BAG IVPB ONE (08:28)
--- NOTE | 2019-02-12 08:33 | CT ---
EXAM DESCRIPTION: Chest w/Contrast CLINICAL HISTORY: 73 years Female, ?mass in chest COMPARISON: Chest radiograph February 11, 2019 TECHNIQUE: Chest CT was performed with IV contrast. This exam was performed according to our departmental dose-optimization program, which includes automated exposure control, adjustment of the mA and/or kV according to patient size and/or use of iterative reconstruction technique. FINDINGS: The thyroid and thoracic inlet are unremarkable. Mural calcifications in the thoracic aorta and coronary arteries without thoracic aortic aneurysm or dissection. No hiatal hernia or esophageal wall thickening. The main pulmonary artery is not dilated. Single borderline enlarged right hilar lymph node measuring up to 1 cm short axis diameter. Nonenlarged left hilar lymph node. No additional mediastinal adenopathy. Small bilateral pleural effusions, larger on the right side. The central airways are clear. There is some dependent atelectasis in both lung bases overlying the effusions. Additional patchy areas of groundglass density are noted elsewhere in both lungs. 4 mm noncalcified left apical lung nodule (series 8 image 28). No breast or chest wall lesion. No axillary adenopathy. Degenerative changes in the thoracic spine at multiple levels. IMPRESSION: Single borderline enlarged right hilar lymph node, but the right hilar mass. Patchy areas of groundglass density in both lungs with small bilateral pleural effusions, larger on the right side. Findings are most consistent with edema. Atypical infection or pneumonitis should also be considered. 4 mm noncalcified left apical lung nodule. If the patient has risk factors for malignancy, follow-up noncontrast chest CT in 12 months should be considered, with no further follow up if the nodule is stable at that time. In the absence of risk factors for malignancy, no follow-up is recommended. Electronically signed by: Randy Benson MD 02/12/2019 8:30 AM CDT
[2019-02-12] MEDS ORDERED: MAGNESIUM SULFATE PREMIX 2GM 50 ML IVPB ONE (08:35)
--- NOTE | 2019-02-12 08:39 | CT ---
EXAM DESCRIPTION: Abdomen/Pelvis w/Contrast CLINICAL HISTORY: elevated bili and LFTs COMPARISON: None Available TECHNIQUE: CT of the abdomen and Pelvis was performed with IV contrast. This exam was performed according to our departmental dose-optimization program, which includes automated exposure control, adjustment of the mA and/or kV according to patient size and/or use of iterative reconstruction technique. FINDINGS: There are mural calcifications in the abdominal aortic aneurysm or dissection. Diffuse abdominal wall edema is noted. No adenopathy, pneumoperitoneum or ascites. No hiatal hernia or gastric wall thickening. The gallbladder is distended, measuring 4.5 cm transverse diameter. No calcified gallstone or biliary ductal dilation. No pancreatitis or pancreatic duct dilation. The spleen and adrenals are unremarkable. 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 There is a round 4.6 cm solid lesion posteriorly in the right kidney which is concerning for neoplasm. A smaller low-density lesion elsewhere the right kidney is too small to characterize but likely represents a cyst. No retroperitoneal adenopathy. The right renal vein and IVC are unremarkable. No small bowel or mesenteric abnormality. A Miguel catheter is present within the bladder is collapsed and otherwise not well evaluated on this exam. The uterus and ovaries are unremarkable for patient's age. Colonic diverticulosis without diverticulitis. No colonic wall thickening or pericolonic inflammation. Degenerative changes in lumbar spine multiple levels including degenerative disc and facet joint disease with central canal and neuroforaminal stenosis at several levels, worse at L4-5. IMPRESSION: Distended gallbladder without calcified gallstone or biliary duct dilation. If clinically suspicious of gallbladder disease, right upper quadrant ultrasound is recommended. 4.6 cm solid right renal lesion posteriorly concerning for neoplasm. Urologic consultation is recommended. No retroperitoneal adenopathy or contralateral renal mass. Diffuse abdominal wall edema, nonspecific but possibly cardiogenic. Colonic diverticulosis without diverticulitis, degenerative changes in the lumbar spine and other nonacute findings as detailed above. Electronically signed by: Randy Benson MD 02/12/2019 8:36 AM CDT
--- NOTE | 2019-02-12 09:47 | RAD ---
EXAM DESCRIPTION: Abdomen Flat Upright CLINICAL HISTORY: elevated bili and LFTs COMPARISON: None. FINDINGS: AP supine and upright views of the abdomen show a nonspecific, nonobstructive bowel gas pattern with no evidence for free intraperitoneal air. No air-filled dilated loops of small bowel are seen. No significant air-fluid levels are identified. No obvious organomegaly is seen. No abnormal calcifications are seen in the expected location of the renal collecting systems. Visualized lower chest shows enlargement of the cardiac silhouette without pulmonary vascular congestion. Blunting of the right costophrenic angle is seen. Contrast is seen in the kidneys and urinary bladder from recent CT scan. IMPRESSION: Nonspecific abdominal series Right pleural effusion is seen. Please see dictated report on CT of the abdomen and pelvis from today. Electronically signed by: Agustin Baker MD 02/12/2019 9:44 AM CDT
--- NOTE | 2019-02-12 09:47 | RAD ---
EXAM DESCRIPTION: Chest,2 Views CLINICAL HISTORY: Congestive heart failure COMPARISON: Chest radiograph dated February 11, [address] dated February 12, 2019 TECHNIQUE: PA and lateral views of the chest FINDINGS: Cardiac silhouette shows cardiomegaly with central pulmonary vascular congestion. Again seen is prominence of the right hilar region, unchanged. Redemonstration of unchanged bilateral alveolar opacities, compatible with pulmonary edema. Underlying infiltrate cannot be excluded. Blunting of the right costophrenic angle, compatible with small right-sided pleural effusion. There is no pneumothorax. No acute osseous abnormality. Degenerative changes of thoracic spine. IMPRESSION: 1. Cardiomegaly with central pulmonary vascular congestion, compatible with congestive heart failure. 2. Redemonstration of bilateral alveolar opacities, compatible with pulmonary edema. Underlying infiltrate cannot be excluded. Appearance is not significantly changed relative to chest radiograph of February 11, [address] of February 12, 2019. 3. Small right-sided pleural effusion. Electronically signed by: Julio C Atkins MD 02/12/2019 9:44 AM CDT
[2019-02-12] MEDS ORDERED: AZITHROMYCIN IV 500 MG VIAL IVPB ONE (10:01)
[2019-02-12] MEDS ORDERED: SODIUM CHLORIDE 0.9% 250ML 250 ML ONE (10:01)
[2019-02-12] MEDS: AZITHROMYCIN IV 500 MG in SODIUM CHLORIDE 0.9% 250ML 250 ML IVPB SCH (10:12)
[2019-02-12] MEDS: KCL 20MEQ/D5NS 1,000 ML IVS PRN ×2 (12:00→23:45)
--- NOTE | 2019-02-12 12:18 | US ---
Right upper quadrant sonogram abdomen INDICATION: Distended gallbladder on CT earlier today TECHNIQUE: Grayscale sonogram right upper quadrant FINDINGS: Proximal aorta is slightly prominent 2.7 cm in diameter. Mid and distal aorta are obscured by bowel gas. The visualized portion of the pancreas is intact. IVC is normal in caliber as visible. Liver slightly enlarged 16.3 cm in length. There is a small pleural effusion identified on the right adjacent to the liver. Gallbladder wall thickness is normal under 2 mm. Slight gallbladder distention nonspecific. Common bile duct is normal 3 mm. Difficulty visualizing right kidney faintly visible but limited assessment. No gallstones are noted. No evidence of pericholecystic fluid. IMPRESSION: No evidence of acute cholecystitis Slightly enlarged liver Limited visualization of the mid and distal aorta and right kidney Electronically signed by: Eron Ly MD 02/12/2019 12:15 PM CDT
[2019-02-12] MEDS: traMADol HCL 50 MG TAB PO PRN (14:56)
--- NOTE | 2019-02-12 17:49 | CONS ---
DATE OF PROCEDURE: 02/12/19 HISTORY OF PRESENT ILLNESS: The patient is a 73 year-old female who was admitted from [facility] with shortness of breath. She has a history of chronic obstructive pulmonary disease. She is oxygen dependent and has a history of congestive heart failure. Since she has been she has been diuresed at states she is doing much better. I was asked to see her because she was found to have an elevated bilirubin and alkaline phosphatase with a normal AST and ALT, and an ultrasound showing a dilated gallbladder. She denies fatty food intolerance. Denies pain and has no history of hepatitis or jaundice to her recollection. PAST MEDICAL HISTORY: 1. Congestive heart failure. 2. Chronic obstructive pulmonary disease. 3. Tobacco abuse. 4. Coronary artery disease. 5. Hypertension. 6. Diabetes mellitus type 2. 7. History of transient ischemic attacks. PAST SURGICAL HISTORY: None. She does have at least 1 child. CURRENT MEDICATIONS: Please see the EMR for her medications. ALLERGIES: EGG PRODUCTS. FAMILY HISTORY: SOCIAL HISTORY: The patient is a . She lives at [facility]. Retired from multiple jobs. She previously drank but has not in the [facility]. She continues to smoke approximately a pack a day and has since her 20s at the latest. REVIEW OF SYSTEMS: There is no fever or chills. She denies productive cough. Denies chest pain. She denies nausea, vomiting, diarrhea, constipation, change in bowel movements or weight loss. She specifically denies fatty food intolerance. PHYSICAL EXAMINATION: VITAL SIGNS: She is currently afebrile and normotensive. HEENT: Reveals her sclera to be nonicteric. Mucous membranes are moist. NECK: Without adenopathy. CHEST: She has equal breath sounds bilaterally. HEART: Regular rate and rhythm. ABDOMEN: Soft, distended minimally. Bowel sounds are active. She is non- tender. PELVIC AND RECTAL: Examinations are deferred. EXTREMITIES: Without clubbing or cyanosis. She has moderate pretibial edema. LABORATORY: Normal AST and ALT. Mildly elevated bilirubin today at 1.7. Alkaline phosphatase is in the 180s. She has a normal white count. Ultrasound of the gallbladder showed a mildly distended gallbladder with no wall thickening. No pericholecystic fluid. There is no mention of a positive Serrano sign. IMPRESSION: 1. Congestive heart failure and chronic obstructive pulmonary disease status post exacerbation of both with improvement. 2. Gallbladder distention without sign of stone or cholecystitis. RECOMMENDATIONS: Continue to treat the patient for her heart failure and COPD. I will follow her with you. It is unlikely she will require any surgical intervention at this time. #[id number] MTDD
[2019-02-12] MEDS ORDERED: SODIUM CHL 0.9% 50ML MIN-BAG+ 50 ML IVPB ONE (19:34)
[2019-02-12] MEDS ORDERED: cefTRIAXone SODIUM 1 GM VIAL ONE (19:35)
[2019-02-12] MEDS: ENOXAPARIN SODIUM 40 MG/0.4 ML SYG SUBCU SCH (20:34)
[2019-02-12] MEDS: MELATONIN 3 MG TAB PO SCH (20:35)
[2019-02-12] MEDS: cefTRIAXone SODIUM 1 GM in SODIUM CHL 0.9% 50ML MIN-BAG+ 50 ML IVPB SCH (22:05)
--- NOTE | 2019-02-12 23:20 | PN ---
DATE: 02/12/19 SUPERVISING PHYSICIAN: Travon Jacobs M.D. SUBJECTIVE: The patient has been having erratic blood sugar this morning on the low end requiring intervention with D50. Part of it is because she was NPO overnight and she did get a fairly large dose of Levemir. I started her on D5 normal saline and some potassium in efforts to prevent such dramatic swings in blood sugars until she can get back to a regular diet and stabilizing her blood sugars. She notes that she is feeling a little bit better today. Her breathing has improved. She has been afebrile. She has had no nausea or vomiting. OBJECTIVE: VITAL SIGNS: Temperature 97.2, pulse 84, blood pressure 115/76, respirations 16, satting 97% on 3 liters nasal cannula at rest. She did require while she was hypoglycemic a Venti mask to maintain O2 saturations in the mid 90s at 6 liter flow. I's and O's show a negative balance of 1934 with 1776 in, 3650 out. Weight is 106.6 kg which is down from admission of 109.3 kg. GENERAL: The patient is alert now. She shows to be in no acute distress. CHEST: Lung sounds are just slightly diminished towards the bases but no rhonchi, wheezing or rales noted. HEART: Regular rate and rhythm. ABDOMEN: Obese but soft, non-tender. Positive bowel sounds. EXTREMITIES: 2+ edema bilaterally. NEUROLOGIC: She is alert and oriented times three. LABORATORY: White count 8,100, hemoglobin 13.1, hematocrit 38.5, platelet count 260,000. Differential does show a left shift. Chemistries again show erratic blood sugars ranging between 34 up to 159. Potassium is 3.3, carbon dioxide is elevated at 33, BUN is slightly elevated at 18 with BUN 25, creatinine 0.98. Total bilirubin was up again at 1.7 which actually was down from 2.9 at admission. Magnesium was 1.6. Liver functions were showing to be within normal limits. Amylase and lipase were both normal. Alkaline phosphatase was slightly elevated at 184. MICROBIOLOGY: Urine culture is still pending. RADIOLOGY: She had an abdominal and pelvis CT and chest CT with contrast as well as a gallbladder ultrasound. On the abdominal/pelvis CT with contrast per radiology interpretation showed a distended gallbladder without calcified gallstones or biliary duct dilation. There is also note of a 4.6 cm solid right renal lesion posteriorly concerning for neoplasm. No retroperitoneal adenopathy or contralateral renal mass. There was diffuse abdominal wall edema, nonspecific, possibly cardiogenic with colonic diverticulosis without diverticulitis. Please see that report for full details. CT of the chest showed single borderline enlarged right perihilar lymph node, but right hilar mass. There was note of patchy areas of ground glass density in both lungs with small bilateral pleural effusions larger on the right side. Findings most consistent with edema. Atypical infection pneumonitis should be considered. Gallbladder ultrasound per radiology interpretation shows no evidence of acute cholecystitis, slightly enlarged liver but limited visualization of the mid and distal aorta and right kidney. MEDICAL CONSULTATION: Dr. Tolbert for findings on CT of gallbladder and Dr. Toribio for right renal mass. Please see their notes for details. ASSESSMENT: 1. Acute exacerbation of congestive heart failure, uncertain etiology with no echocardiogram on admission for review, showing good response to treatment with Lasix and fluid restriction. 2. Hyperbilirubinemia with elevated liver enzymes with CT findings of distended gallbladder but no acute findings of cholecystitis with consultation by Dr. Tolbert. 3. 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 Toribio to be followed-up as an outpatient. 4. Shortness of breath with a history of chronic obstructive pulmonary disease, likely from exacerbation in combination with #1. Cannot completely exclude underlying pneumonia with the patient currently doing well on therapy with both Lasix and antibiotics in a patient who is a current smoker and O2 dependent. 5. Urinary tract infection with cultures pending. 6. Diabetes mellitus with erratic blood sugars and hypoglycemia secondary to long acting insulin with Levemir requiring multiple interventions to stabilize blood sugars. 7. History of transient ischemic attacks. PLAN: Will go ahead and continue current plan at this point with Rocephin but will add azithromycin for concerns for developing community acquired pneumonia. Dr. Tolbert has seen the patient in consultation in regards to the ultrasound findings and CT of the abdomen as well as Dr. Toribio saw the patient in consultation in regards to the questionable neoplasm on the right kidney which he will see the patient as an outpatient once discharged. Will continue with Lasix b.i.d. I put her on D5 normal saline with 20 of potassium in efforts to stabilize her blood sugar. Will hold the Levemir until she does stabilize and continue with sliding scale. Once her blood sugars do stabilize and the patient has shown good clinical response to current treatment, will anticipate hopefully being able to discharge back to [facility] tomorrow. Until then will continue to monitor her blood cultures, urine cultures and follow her and treat as needed. #[id number] and [id number] [facility]
[2019-02-13] MEDS: traMADol HCL 50 MG TAB PO PRN (03:11)
[2019-02-13] MEDS: PANTOPRAZOLE SODIUM IV 40 MG VIAL IV SCH (06:11)
[2019-02-13] MEDS: DEXTROSE 50% 25 GM/50 ML SYG IV PRN (07:01)
[2019-02-13] MEDS ORDERED: SODIUM CHLORIDE 0.9% 250ML 250 ML ONE (07:38)
[2019-02-13] MEDS ORDERED: AZITHROMYCIN IV 500 MG VIAL IVPB ONE (07:39)
[2019-02-13] MEDS: POTASSIUM CHLORIDE 20 MEQ TAB PO SCH (07:57)
[2019-02-13] MEDS: INSULIN LISPRO 100 UNITS/ML PEN SUBCU SCH (07:57)
[2019-02-13] MEDS: IPRATROPIUM/ALBUTEROL 3 ML VIAL NEB SCH ×2 (08:48→12:52)
[2019-02-13] MEDS: LISINOPRIL 10 MG TAB PO SCH (08:51)
[2019-02-13] MEDS: SERTRALINE HCL 50 MG TAB PO SCH (08:51)
[2019-02-13] MEDS: FUROSEMIDE INJ 40 MG/4 ML VIAL IV SCH (08:51)
[2019-02-13] MEDS: QUEtiapine FUMARATE 25 MG TAB PO SCH (08:51)
[2019-02-13] MEDS: GABAPENTIN 100 MG CAP PO SCH (08:51)
[2019-02-13] MEDS: AZITHROMYCIN IV 500 MG in SODIUM CHLORIDE 0.9% 250ML 250 ML IVPB SCH (08:52)
[2019-02-13] MEDS: SODIUM CHLORIDE 0.9% (FLUSH) 10 ML SYG IV SCH (08:52)
[2019-02-13] MEDS: NYSTATIN POWDER 15GM BTTL TOP SCH (08:56)
[2019-02-13 14:13] VITALS: BP 161/85; TEMP 98.5; O2SAT 92
[2019-02-14] MEDS ORDERED: METOPROLOL SUCCINATE XL 25 MG TAB PO SCH (09:00)
--- NOTE | 2019-02-14 11:38 | DS ---
SUPERVISING PHYSICIAN: Sukhdeep Jacobs MD ADMISSION DIAGNOSIS: 1. Acute exacerbation of congestive heart failure, unknown etiology and no current echocardiogram on the chart to review. 2. Shortness of breath in a patient with chronic obstructive pulmonary disease, although most likely her shortness of breath is due to #1. Cannot exclude a mild exacerbation of her chronic obstructive pulmonary disease as well as concerns for a healthcare acquired pneumonia. The patient is a current smoker and oxygen dependent. 3. Hyperbilirubinemia as well as elevated liver enzymes. She has no complaints of abdominal pain or history of any liver disease. She has had a previous elevated bilirubin per EMR records. 4. Mild urinary tract infection. 5. Diabetes mellitus. 6. Hypertension. 7. History of transient ischemic attack. DISCHARGE DIAGNOSIS: 1. Acute exacerbation of congestive heart failure, uncertain etiology with no echocardiogram on admission for review, showing good response to treatment with Lasix and fluid restriction. 2. Hyperbilirubinemia with elevated liver enzymes with CT findings of distended gallbladder but no acute findings of cholecystitis with consultation by Dr. Tolbert. 3. 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 Toribio to be followed-up as an outpatient. 4. Shortness of breath with a history of chronic obstructive pulmonary disease, likely from exacerbation in combination with #1. Cannot completely exclude underlying pneumonia with the patient currently doing well on therapy with both Lasix and antibiotics in a patient who is a current smoker and O2 dependent. 5. Urinary tract infection secondary to pansensitive Escherichia coli. 6. Diabetes mellitus with erratic blood sugars and hypoglycemia secondary to long acting insulin with Levemir requiring multiple interventions to stabilize blood sugars. 7. History of transient ischemic attacks. MEDICAL CONSULTATION: Charli Tolbert MD, for questionable cholecystitis and findings on CT. REASON FOR HOSPITALIZATION: This is a 73 year-old female patient who lives at [facility]. She has had about a 2 to 3 day history of shortness of breath. She is oxygen dependent and a history of chronic obstructive pulmonary disease and congestive heart failure. She also is a current smoker. She said her symptoms were mild at first but today she just "can't breathe." She also complains of her legs being slightly swollen and she has needed her oxygen 24 yours a day over the past 2 days. She normally just wears it at night or as needed. She moved to [place] in July of 2018. She had lived in [facility] because her son lived at [facility] but her son now lives in [place] and she states she is not going to move again. Her primary care physician is Dr. Hernandez. At the long term, her oxygen saturations were reported to be in the 70s and upon arrival to the Emergency Room her 02 saturation was 86%. Her heart rate was 109 with a respiratory rate at 24. In the Emergency Room, she received several breathing treatments and her lab was obtained. WBCs are 10 with hemoglobin of 13.6 and hematocrit 40.9. She does have a left shift on her differential. Sodium 135, potassium 4, chloride 94, carbon dioxide 28, BUN 26, creatinine 0.88, glucose 174, bilirubin 2.9 with a direct bilirubin of 1.7 and indirect bilirubin of 1.3. AST is 47, ALT is 29, alkaline phosphatase 198. CK- MB 5.6, BNP 999, albumin 2.8. Urinalysis shows small amount of urine blood with 2 urine bilirubin, trace urine leukocyte esterase, 3 to 5 urine RBCs and 3 to 5 urine WBCs. Chest x-ray shows mild cardiomegaly and right pleural fluid may indicate fluid overload, congestive heart failure. There is a round mass-like density in the right hilum measuring 2.3 x 2.3 cm. It may represent pulmonary vascular structures, a small mass or adenopathy in the right hilum is not excluded. Recommend comparison to previous films. She was given Lasix in the Emergency Room as well as breathing treatments and continued on oxygen. I was called for hospital admission. LABORATORY: Hemoglobin and hematocrit were stable and at discharge were 13.1 and 38.5. Platelet count 260,000. Differential showed a left shift. White count was within normal limits at discharge at 8,100. Chemistries on admission showed elevated bilirubin at 2.9 improving with fluids and management and prior to discharge was down to 1.7. She did have elevated BNP at 999 on admission. Amylase was normal, lipase was normal. Electrolytes initially on admission were within normal limits with BUN 26, creatinine 0.88. Prior to discharge, last chemistries showed normal electrolytes with BUN 21, creatinine 0.83. Anion gap was slightly elevated 20. Blood sugars were slightly erratic after she was started on Levemir, ranging between 40 to 243, but prior to discharge had stabilized and were ranging between 59 to 204. Calcium 8.1. Urinalysis on admission showed small amount of blood, 2.0 bilirubin with microscopic revealing 3 to 5 RBCs and WBCs with rate bacteria. MICROBIOLOGY: Final urine culture showed a pansensitive E. coli. RADIOLOGY: Chest x-ray on admission per radiologic interpretation showed blunting of the costophrenic angle, scarring, small pleural effusion. No pneumothorax with mild cardiomegaly, right pleural fluid indicating fluid overload. There was note of a masslike density in the right hilum which measured 2.3 x 2.3 cm. This was followed up with a CT of the chest and abdomen. CT of the chest with contrast per radiologic interpretation showed a noncalcified left apical lung nodule which will need to be followed up with at discharge as the patient is high risk for malignancy. She will need a followup noncontrast chest CT in the next 12 months. There was also note of patchy areas of ground glass density in both lungs with small bilateral pleural effusions. CT of the abdomen ad pelvis with contrast per radiologic interpretation showed a 4.6 cm solid right renal lesion posteriorly concerning for neoplasm. She also had distended gallbladder without calcified stones or biliary duct dilation, diffuse abdominal wall edema, possibly cardiogenic with colonic diverticulosis with no diverticulitis. Please see those reports for full details. She also had an ultrasound of the gallbladder and per radiologic interpretation no gallstones were noted, no pericholecystic fluid, no acute cholecystitis evident. She had a slightly enlarged liver. MEDICAL CONSULTATION: Urology, Dr. Toribio. He will see the patient in followup with regards to the renal cyst, questionable neoplasm. She was seen by Dr. Tolbert for the gallbladder with no acute findings. She will be followed up in outpatient setting by her primary care provider as well as other findings on chest CT for concerning nodule. HOSPITAL COURSE: Ms. Keller was admitted for exacerbation of congestive heart failure, questionable pneumonia and treated aggressively with Lasix. She was started on antibiotics with concerns for urinary tract infection as well as pneumonia with initial medication regimen that included Rocephin and then transitioned to azithromycin. She was also started on metoprolol in regards to the congestive heart failure as well as CONSTANTINE inhibitor. At some point, she will need to see a product safety head for an echocardiogram. On the morning of discharge, she was clinically stable enough to discharge to continue with outpatient management. PLAN: Ms. Keller was discharged back to [facility]. She will need multiple followup appointments with her primary care provider at the long term as well as Dr. Toribio within 2 weeks in regards to the findings on CT with questionable neoplasm on the right kidney. She will also need a followup with her primary care provider and make sure she gets a followup CT of the chest, noncontrast, in the next 12 months to further assess the nodule noted on CT of the chest which can be arranged through her primary doctor's office. Activity to be evaluated and treated per physical therapy evaluation. Diet was diabetic diet as tolerated. She was discharged with antibiotics for treatment of the underlying pneumonia as well as the urinary tract infection. MEDICATIONS PRESCRIBED AT DISCHARGE: 1. Azithromycin 500 mg daily, #4. 2. Omnicef 300 mg twice daily, #14. 3. Lasix 40 mg daily, #30. 4. Metoprolol succinate extended release 25 mg daily. 5. CONSTANTINE inhibitor. Again, she will need a followup echocardiogram in regards to evaluation of her congestive heart failure and again followup on the findings on CT of the questionable renal neoplasm and nodule in her lung. Periodic followup with her primary care provider is needed. DISPOSITION: The patient was discharged back to [facility]. CONDITION AT DISCHARGE: Stable and improved. #[id number] [facility]
== END 2019-02-13 15:00 | DRG 291 ==
LOC: ER 13:04 → OBSVTOIN 15:14 → MS 15:14
PROVIDERS: ADMIT Nurse Practitioner Acute Care; ATTEND Nurse Practitioner Family
PROC: BW251ZZ Computerized Tomography (CT Scan) of Chest, Abdomen and Pelvis using Low Osmolar Contrast (ICD-10-PCS; principal; 2019-02-12)
DX: I11.0 Hypertensive heart disease with heart failure (principal); J18.9 Pneumonia, unspecified organism; J44.1 Chronic obstructive pulmonary disease with (acute) exacerbation; N39.0 Urinary tract infection, site not specified; J44.0 Chronic obstructive pulmonary disease with (acute) lower respiratory infection; I50.9 Heart failure, unspecified; F17.210 Nicotine dependence, cigarettes, uncomplicated; I25.10 Atherosclerotic heart disease of native coronary artery without angina pectoris; Z86.73 Personal history of transient ischemic attack (TIA), and cerebral infarction without residual deficits; R74.8 Abnormal levels of other serum enzymes; R93.2 Abnormal findings on diagnostic imaging of liver and biliary tract; B96.20 Unspecified Escherichia coli [E. coli] as the cause of diseases classified elsewhere; E11.649 Type 2 diabetes mellitus with hypoglycemia without coma; N28.9 Disorder of kidney and ureter, unspecified; E80.6 Other disorders of bilirubin metabolism; Z99.81 Dependence on supplemental oxygen; Z79.4 Long term (current) use of insulin; Z79.891 Long term (current) use of opiate analgesic; Z79.899 Other long term (current) drug therapy

== ENCOUNTER 2019-03-08 12:24 | Emergency (ER) | payer MEDICAID, MEDICARE ==
--- NOTE | 2019-03-08 13:39 | RAD ---
EXAM DESCRIPTION: Hip,Left 2 Views CLINICAL HISTORY: fall with pain COMPARISON: None. IMPRESSION: 2 views of the left hip show no acute fracture, focal bone destruction, or joint dislocation. Mild heterotopic calcification medial to the left femoral neck is seen. Mild joint space narrowing and sclerotic changes to the superior lateral acetabulum are seen consistent with mild osteoarthritic changes. Mild degenerative changes of the sacroiliac joints are seen. Electronically signed by: Agustin Baker MD 03/08/2019 1:37 PM CDT
--- NOTE | 2019-03-08 13:47 | RAD ---
EXAM DESCRIPTION: Pelvis CLINICAL HISTORY: 73 years Female, fall with pain COMPARISON: None. FINDINGS: Single view of the pelvis demonstrates the bony pelvic ring is intact. Hypertrophic changes over the right greater trochanter is present and modest degenerative changes in the lower lumbar spine noted. No definite fracture or disruption of the SI joint or pubis noted. IMPRESSION: Negative pelvis one view. Electronically signed by: Maxx Shetty MD 03/08/2019 1:45 PM CDT
--- NOTE | 2019-03-08 13:48 | RAD ---
EXAM DESCRIPTION: Sacrum Coccyx CLINICAL HISTORY: 73 years Female, fall with pain COMPARISON: None. FINDINGS: Three views of the sacrum and coccyx demonstrate intact SI joints and neural arches. Degenerative changes in the lower lumbar spine are noted. Normal anterior angulation of the distal sacrum and segmentation of the coccyx is noted. No definite fracture is evident. Moderate hip degenerative arthropathy noted. IMPRESSION: Negative sacrum and coccyx. Electronically signed by: Maxx Shetty MD 03/08/2019 1:46 PM CDT
--- NOTE | 2019-03-08 13:49 | RAD ---
EXAM DESCRIPTION: Chest,1 View CLINICAL HISTORY: 73 years Female, fall with pain COMPARISON: February 12, 2019 TECHNIQUE: AP portable chest. FINDINGS: Single view of the chest demonstrates tortuous calcified aortic arch and descending aorta with moderate cardiomegaly, unchanged. Vascularity is upper limits of normal and little changed from one month earlier. No acute infiltrates or pneumothorax or hemothorax noted. IMPRESSION: Cardiomegaly and tortuous aorta with upper normal vascularity with no acute injury noted Electronically signed by: Maxx Shetty MD 03/08/2019 1:47 PM CDT
--- NOTE | 2019-03-08 14:47 | ED.PDOC ---
History of Present Illness - General Chief Complaint: Trauma Stated Complaint: Back pain Time Seen by Provider: 03/08/19 12:29 Source: patient Exam Limitations: clinical condition - History of Present Illness Initial Comments: the patient is a 73-year-old female presenting to the emergency room secondary to having fallen at the long-term. She was using her walker when she tripped and fell backwards and landed on her tailbone. She does have a small bruise to the right sacral area. It is tender. No laceration. The patient also reported some pain in her left hip at that time however by the time she arrives here she is no longer having any pain there. She is pleasant and cooperative. She actually moves all of her extremities well. She does have chronic dependent edema and some stasis dermatitis from that. She reports that she has had several falls in the last couple of weeks. I see no evidence of any significant other injuries otherwise.dementia does however significantly limit the verbal exam. Timing/Duration: unsure Severity: moderate Improving Factors: nothing Worsening Factors: nothing Associated Symptoms: denies symptoms Allergies/Adverse Reactions: Allergies Eggs or Egg-derived Products Allergy (Verified 02/10/19 16:13) Home Medications: Ambulatory Orders Acetaminophen W/ Codeine [Tylenol W/ CODEINE #3] 1 ea PO Q4H PRN 02/07/19 Alum & Mag Hydrox-Simethicone [Maalox Max 400-400-40 mg/5Ml] 1 lida PO Q2H PRN 02/07/19 Amino Acids-Protein Hydrolysat [Pro-Stat] 17 gm PO BID 02/07/19 Artificial Tear Solution [Genteal Tears Liquid Drop 0.1-0.2-0.3 %] 1 vicenta OPHTH BID 02/07/19 Baclofen 10 mg PO PRN PRN 02/07/19 Cholecalciferol [D 1000] 1,000 unit PO DAILY 02/07/19 Docusate Sodium [Colace] 100 mg PO DAILY 02/07/19 Emollient [Aquaphor Advanced Therapy] 41 % EX PRN PRN 02/07/19 Fenofibrate [Tricor] 145 mg PO DAILY 02/07/19 Ferrous Sulfate [Iron] 325 mg PO DAILY 02/07/19 Gabapentin 100 mg PO TID PRN 02/07/19 Insulin Glargine [Basaglar Kwikpen] 75 unit SC BID 02/07/19 Insulin Lispro (Human) [Humalog] 100 unit SC PRN PRN 02/07/19 Ipratropium Lapaz 0.02 % INH PRN PRN 02/07/19 Lisinopril 10 mg PO DAILY 02/07/19 Magnesium Hydroxide [[place] Milk of Magnesia] 400 mg PO DAILY 02/07/19 Melatonin 5 mg PO DAILY 02/07/19 Multiple Vitamins W/ Minerals [Prosight] 1 tab PO BID 02/07/19 Nitroglycerin 0.4 mg Tab [Nitrostat] 0.4 mg SL PRN PRN 02/07/19 Omeprazole [Prilosec Cap] 20 mg PO TID 02/07/19 Potassium Chloride Tab [K-Dur] 20 meq PO DAILY #15 tab 02/07/19 Preparation H Suppository [(None)] 1 ea IN Q6HR PRN 02/07/19 QUEtiapine FUMARATE [Seroquel] 25 mg PO DAILY 02/07/19 Quetiapine Fumarate 50 mg PO DAILY 02/07/19 Saxagliptin HCl [Onglyza] 2.5 mg PO DAILY 02/07/19 Sertraline HCl 100 mg PO DAILY 02/07/19 Tramadol HCl 50 mg PO Q4H PRN 02/07/19 Triamcinolone 0.1% Oint [Kenalog 0.1% Ointment] 1 applic TOP Q12H 02/07/19 diphenhydrAMINE HCL [Benadryl] 50 mg PO PRN PRN 02/07/19 Azithromycin 500 mg PO DAILY 4 Days #4 tab 02/13/19 Cefdinir [Omnicef] 300 mg PO BID #14 cap 02/13/19 Furosemide [Lasix] 40 mg PO DAILY #30 tab 02/13/19 Review of Systems - Review of Systems Constitutional: States: no symptoms reported EENTM: States: no symptoms reported Respiratory: States: no symptoms reported Cardiology: States: no symptoms reported Gastrointestinal/Abdominal: States: no symptoms reported Genitourinary: States: no symptoms reported Musculoskeletal: States: see HPI Skin: States: no symptoms reported Neurological: States: no symptoms reported Endocrine: States: no symptoms reported All other Systems: No Change from Baseline Past Medical History (General) - Patient Medical History Hx Seizures: No Hx Stroke: No Hx Asthma: No Hx of COPD: Yes Hx Congestive Heart Failure: Yes Hx Pacemaker: No Hx Hypertension: Yes Hx Diabetes: Yes Hx MRSA: No - Vaccination History Hx Pneumococcal Vaccination: Yes - Social History Hx Tobacco Use: Yes Hx Alcohol Use: Yes Hx Substance Use: No Hx Substance Use Treatment: No Hx Depression: No Hx Physical Abuse: No Hx Emotional Abuse: No - Female History Patient : No Family Medical History - Family History Mother Family History: Unknown Living Status: Unknown Physical Exam - Physical Exam General Appearance: Alert, Comfortable, No apparent distress Eye Exam: bilateral normal Ears, Nose, Throat: hearing grossly normal, normal pharynx Neck: full range of motion, supple Respiratory: lungs clear, normal breath sounds, no respiratory distress, no accessory muscle use Cardiovascular/Chest: normal peripheral pulses, other - regular rate Peripheral Pulses: radial,right: 2+, radial,left: 2+ Gastrointestinal/Abdominal: non tender, soft Rectal Exam: deferred, other - bruising to the right sided sacral area. No defiinite palpable deformity. No laceration. 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 She has however easily confused. Skin Exam: normal color - several bruises from previous falls Progress - Progress Progress: 03/08/19 14:49 the patient is a 73-year-old female presenting to emergency room after a fall today. She appears to have bruised the soft tissue around her sacral area. No evidence of any overt fractures. X-rays of the left hip, pelvis, sacrum and coccyx have been taken. Chest x-ray was also clear. Laboratory work does not give any source for the recurrent falls. The patient may benefit from physical therapy to prevent further falls. She was unable to get a urinalysis here today and that may be beneficial to check back at her facility. For the chronic dependent edema, compression stockings may prove more beneficial than other measures. ER warnings were given. Keep routine follow-up with primary care doctor otherwise. - Results/Orders Results/Orders: Laboratory Results - last 24 hr 03/08/19 03/08/19 03/08/19 12:33 12:33 12:33 WBC 5.6 RBC 4.50 Hgb 14.6 Hct 43.5 MCV 96.6 MCH 32.4 H MCHC 33.6 RDW 15.4 H Plt Count 223 MPV 8.0 Absolute Neuts (auto) 4.40 Absolute Lymphs (auto) 0.60 L Absolute Monos (auto) 0.40 Absolute Eos (auto) 0.10 Absolute Basos (auto) 0.00 Neutrophils % 78.4 H Lymphocytes % 10.7 L Monocytes % 8.0 Eosinophils % 2.4 Basophils % 0.5 PT 12.4 H INR 1.24 H PTT (SP) 30.3 Sodium 135 Potassium 4.6 Chloride 95 L Carbon Dioxide 29 Anion Gap 15.6 BUN 25 H Creatinine 1.33 H BUN/Creatinine Ratio 18.8 Random Glucose 183 H Serum Osmolality 279.2 Calcium 8.8 Total Bilirubin 1.3 H AST 33 ALT 19 Alkaline Phosphatase 141 H Creatine Kinase 87 CK-MB (CK-2) 7.6 H* CK-MB (CK-2) % 8.74 H Troponin I 0.03 B-Natriuretic Peptide 363.0 H* Serum Total Protein 7.6 Albumin 3.1 L Globulin 4.5 H Albumin/Globulin Ratio 0.7 L Departure - Departure Clinical Impression: Recurrent falls while walking, Chronic edema Disposition: Discharge to Home or Self Care Condition: Fair Departure Forms: ED Discharge - Pt. Copy, Patient Portal Self Enrollment Diet: low salt diet Activity: increase activity as tolerated Referrals: BROOKLYN ARIAS [Primary Care Provider] - 1-5 Days Home Medications: Ambulatory Orders Acetaminophen W/ Codeine [Tylenol W/ CODEINE #3] 1 ea PO Q4H PRN 02/07/19 Alum & Mag Hydrox-Simethicone [Maalox Max 400-400-40 mg/5Ml] 1 lida PO Q2H PRN 02/07/19 Amino Acids-Protein Hydrolysat [Pro-Stat] 17 gm PO BID 02/07/19 Artificial Tear Solution [Genteal Tears Liquid Drop 0.1-0.2-0.3 %] 1 vicenta OPHTH BID 02/07/19 Baclofen 10 mg PO PRN PRN 02/07/19 Cholecalciferol [D 1000] 1,000 unit PO DAILY 02/07/19 Docusate Sodium [Colace] 100 mg PO DAILY 02/07/19 Emollient [Aquaphor Advanced Therapy] 41 % EX PRN PRN 02/07/19 Fenofibrate [Tricor] 145 mg PO DAILY 02/07/19 Ferrous Sulfate [Iron] 325 mg PO DAILY 02/07/19 Gabapentin 100 mg PO TID PRN 02/07/19 Insulin Glargine [Basaglar Kwikpen] 75 unit SC BID 02/07/19 Insulin Lispro (Human) [Humalog] 100 unit SC PRN PRN 02/07/19 Ipratropium Lapaz 0.02 % INH PRN PRN 02/07/19 Lisinopril 10 mg PO DAILY 02/07/19 Magnesium Hydroxide [[place] Milk of Magnesia] 400 mg PO DAILY 02/07/19 Melatonin 5 mg PO DAILY 02/07/19 Multiple Vitamins W/ Minerals [Prosight] 1 tab PO BID 02/07/19 Nitroglycerin 0.4 mg Tab [Nitrostat] 0.4 mg SL PRN PRN 02/07/19 Omeprazole [Prilosec Cap] 20 mg PO TID 02/07/19 Potassium Chloride Tab [K-Dur] 20 meq PO DAILY #15 tab 02/07/19 Preparation H Suppository [(None)] 1 ea IN Q6HR PRN 02/07/19 QUEtiapine FUMARATE [Seroquel] 25 mg PO DAILY 02/07/19 Quetiapine Fumarate 50 mg PO DAILY 02/07/19 Saxagliptin HCl [Onglyza] 2.5 mg PO DAILY 02/07/19 Sertraline HCl 100 mg PO DAILY 02/07/19 Tramadol HCl 50 mg PO Q4H PRN 02/07/19 Triamcinolone 0.1% Oint [Kenalog 0.1% Ointment] 1 applic TOP Q12H 02/07/19 diphenhydrAMINE HCL [Benadryl] 50 mg PO PRN PRN 02/07/19 Azithromycin 500 mg PO DAILY 4 Days #4 tab 02/13/19 Cefdinir [Omnicef] 300 mg PO BID #14 cap 02/13/19 Furosemide [Lasix] 40 mg PO DAILY #30 tab 02/13/19 Additional Instructions: the patient is a 73-year-old female presenting to emergency room after a fall today. She appears to have bruised the soft tissue around her sacral area. No evidence of any overt fractures. X-rays of the left hip, pelvis, sacrum and coccyx have been taken. Chest x-ray was also clear. Laboratory work does not give any source for the recurrent falls. The patient may benefit from physical therapy to prevent further falls. She was unable to get a urinalysis here today and that may be beneficial to check back at her facility. For the chronic dependent edema, compression stockings may prove more beneficial than other measures. ER warnings were given. Keep routine follow-up with primary care doctor otherwise.
[2019-03-08 16:46] VITALS: TEMP 97.7
[2019-03-08 16:48] VITALS: BP 142/58; O2SAT 94
== END 2019-03-08 16:20 | disposition home or self-care (01) ==
LOC: ER 12:24
DX: S30.0XXA Contusion of lower back and pelvis, initial encounter (principal); R60.9 Edema, unspecified; M16.12 Unilateral primary osteoarthritis, left hip; J44.9 Chronic obstructive pulmonary disease, unspecified; I50.9 Heart failure, unspecified; I11.0 Hypertensive heart disease with heart failure; E11.9 Type 2 diabetes mellitus without complications; Z91.81 History of falling; Z87.891 Personal history of nicotine dependence; Z79.899 Other long term (current) drug therapy; Z79.4 Long term (current) use of insulin; W01.0XXA Fall on same level from slipping, tripping and stumbling without subsequent striking against object, initial encounter; Y92.129 Unspecified place in nursing home as the place of occurrence of the external cause

== ENCOUNTER 2019-03-31 23:30 | Emergency (ER) | payer MEDICAID, MEDICARE ==
[2019-04-01] MEDS ORDERED: MORPHINE SULFATE INJ 10 MG/ML VIAL IV ONE (00:19)
[2019-04-01] MEDS ORDERED: ONDANSETRON INJ 4 MG/2 ML VIAL IV ONE (00:19)
--- NOTE | 2019-04-01 00:22 | ED.PDOC ---
History of Present Illness - General Chief Complaint: General Stated Complaint: muscle cramping Time Seen by Provider: 04/01/19 00:13 Source: patient Exam Limitations: no limitations - History of Present Illness Initial Comments: MUSCLE CRAMPS ONSET YESTERDAY SHE FREQUENTLY SUFFERS OF CRAMPS MOSTLY ON HER LEGS, NOW ALSO ON HER HANDS. Timing/Duration: 24 hours Severity: moderate Improving Factors: nothing Worsening Factors: nothing Associated Symptoms: denies symptoms Allergies/Adverse Reactions: Allergies Eggs or Egg-derived Products Allergy (Verified 02/10/19 16:13) Home Medications: Ambulatory Orders Acetaminophen W/ Codeine [Tylenol W/ CODEINE #3] 1 ea PO Q4H PRN 02/07/19 Alum & Mag Hydrox-Simethicone [Maalox Max 400-400-40 mg/5Ml] 1 lida PO Q2H PRN 02/07/19 Amino Acids-Protein Hydrolysat [Pro-Stat] 17 gm PO BID 02/07/19 Artificial Tear Solution [Genteal Tears Liquid Drop 0.1-0.2-0.3 %] 1 vicenta OPHTH BID 02/07/19 Baclofen 10 mg PO PRN PRN 02/07/19 Cholecalciferol [D 1000] 1,000 unit PO DAILY 02/07/19 Docusate Sodium [Colace] 100 mg PO DAILY 02/07/19 Emollient [Aquaphor Advanced Therapy] 41 % EX PRN PRN 02/07/19 Fenofibrate [Tricor] 145 mg PO DAILY 02/07/19 Ferrous Sulfate [Iron] 325 mg PO DAILY 02/07/19 Gabapentin 100 mg PO TID PRN 02/07/19 Insulin Glargine [Basaglar Kwikpen] 75 unit SC BID 02/07/19 Insulin Lispro (Human) [Humalog] 100 unit SC PRN PRN 02/07/19 Ipratropium [place] 0.02 % INH PRN PRN 02/07/19 Lisinopril 10 mg PO DAILY 02/07/19 Magnesium Hydroxide [[place] Milk of Magnesia] 400 mg PO DAILY 02/07/19 Melatonin 5 mg PO DAILY 02/07/19 Multiple Vitamins W/ Minerals [Prosight] 1 tab PO BID 02/07/19 Nitroglycerin 0.4 mg Tab [Nitrostat] 0.4 mg SL PRN PRN 02/07/19 Omeprazole [Prilosec Cap] 20 mg PO TID 02/07/19 Potassium Chloride Tab [K-Dur] 20 meq PO DAILY #15 tab 02/07/19 Preparation H Suppository 1 ea LA Q6HR PRN 02/07/19 QUEtiapine FUMARATE [Seroquel] 25 mg PO DAILY 02/07/19 Quetiapine Fumarate 50 mg PO DAILY 02/07/19 Saxagliptin HCl [Onglyza] 2.5 mg PO DAILY 02/07/19 Sertraline HCl 100 mg PO DAILY 02/07/19 Tramadol HCl 50 mg PO Q4H PRN 02/07/19 Triamcinolone 0.1% Oint [Kenalog 0.1% Ointment] 1 applic TOP Q12H 02/07/19 diphenhydrAMINE HCL [Benadryl] 50 mg PO PRN PRN 02/07/19 Azithromycin 500 mg PO DAILY 4 Days #4 tab 02/13/19 Cefdinir [Omnicef] 300 mg PO BID #14 cap 02/13/19 Furosemide [Lasix] 40 mg PO DAILY #30 tab 02/13/19 Review of Systems - Review of Systems Constitutional: States: no symptoms reported EENTM: States: no symptoms reported Respiratory: States: no symptoms reported Cardiology: States: no symptoms reported Gastrointestinal/Abdominal: States: no symptoms reported Genitourinary: States: no symptoms reported Musculoskeletal: States: joint pain, muscle pain Skin: States: no symptoms reported Neurological: States: no symptoms reported Endocrine: States: no symptoms reported Hematologic/Lymphatic: States: no symptoms reported Past Medical History (General) - Patient Medical History Hx Seizures: No Hx Stroke: No Hx Dementia: Yes Hx Asthma: No Hx of COPD: Yes Hx Cardiac Disorders: Yes - A fib; PVD; hyperlipidemia Hx Congestive Heart Failure: Yes Hx Pacemaker: No Hx Hypertension: Yes Hx Diabetes: Yes Hx Gastroesophageal Reflux: Yes Hx MRSA: No - Vaccination History Hx Influenza Vaccination: No Hx Pneumococcal Vaccination: Yes - Social History Hx Tobacco Use: Yes Hx Alcohol Use: Yes Hx Substance Use: No Hx Substance Use Treatment: No Hx Depression: No Hx Physical Abuse: No Hx Emotional Abuse: No - Female History Patient : No Family Medical History - Family History Mother Family History: Unknown Living Status: Unknown Physical Exam - Physical Exam General Appearance: Alert, Well Developed, Well Hydrated Eye Exam: bilateral normal Ears, Nose, Throat: hearing grossly normal, normal ENT inspection Neck: non-tender, full range of motion Respiratory: chest non-tender, lungs clear, normal breath sounds, no respiratory distress Cardiovascular/Chest: normal peripheral pulses, regular rate, rhythm, no edema, no gallop Peripheral Pulses: radial,right: 2+, radial,left: 2+ Gastrointestinal/Abdominal: normal bowel sounds, non tender Rectal Exam: deferred Back Exam: normal inspection Extremity: normal range of motion 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, no motor/sensory deficits, oriented x 3 DTR: 4+: Biceps, left, Biceps, right Skin Exam: normal color Lymphatic: no adenopathy Progress - Progress Progress: 04/01/19 00:52 04/01/19 00:43 FSBS [GLUCOSE, FINGER STICK] Stat Laboratory Results WBC 10.3 K/mm3 (4.8-10.8) 03/31/19 23:45 RBC 4.02 M/mm3 (4.20-5.40) L 03/31/19 23:45 Hgb 13.0 gm/dL (12.0-16.0) 03/31/19 23:45 Hct 38.0 % (36.0-47.0) 03/31/19 23:45 MCV 94.5 fl (81.0-99.0) 03/31/19 23:45 MCH 32.2 pg (27.0-31.0) H 03/31/19 23:45 MCHC 34.1 g/dL (33.0-37.0) 03/31/19 23:45 RDW 14.8 % (11.5-14.5) H 03/31/19 23:45 Plt Count 300 K/mm3 (130-400) 03/31/19 23:45 MPV 8.0 fl (7.40-10.4) 03/31/19 23:45 Absolute Neuts (auto) 7.80 K/uL (1.8-6.8) H 03/31/19 23:45 Absolute Lymphs (auto) 1.20 K/uL (1.0-3.4) 03/31/19 23:45 Absolute Monos (auto) 1.00 K/uL (0.2-0.8) H 03/31/19 23:45 Absolute Eos (auto) 0.10 K/uL (0.0-0.4) 03/31/19 23:45 Absolute Basos (auto) 0.20 K/uL (0.0-0.1) H 03/31/19 23:45 Neutrophils % 76.1 % (42.0-78.0) 03/31/19 23:45 Lymphocytes % 11.2 % (20.0-50.0) L 03/31/19 23:45 Monocytes % 9.4 % (2.0-9.0) H 03/31/19 23:45 Eosinophils % 1.0 % (1.0-5.0) 03/31/19 23:45 Basophils % 2.3 % (0.0-2.0) H 03/31/19 23:45 Sodium 132 mmol/L (135-145) L 03/31/19 23:50 Potassium 3.9 mmol/L (3.6-5.0) 03/31/19 23:50 Chloride 96 mmol/L (101-111) L 03/31/19 23:50 Carbon Dioxide 27 mmol/L (21-31) 03/31/19 23:50 Anion Gap 12.9 (12-18) 03/31/19 23:50 BUN 22 mg/dL (7-18) H 03/31/19 23:50 Creatinine 1.18 mg/dL (0.6-1.3) 03/31/19 23:50 BUN/Creatinine Ratio 18.6 (10-20) 03/31/19 23:50 Random Glucose 49 mg/dL (70-105) L 03/31/19 23:50 Serum Osmolality 265.1 mOsm/L (275-295) L 03/31/19 23:50 Calcium 8.6 mg/dL (8.4-10.2) 03/31/19 23:50 Total Bilirubin 1.9 mg/dL (0.2-1.0) H 03/31/19 23:50 AST 47 IU/L (10-42) H 03/31/19 23:50 ALT 29 IU/L (10-60) 03/31/19 23:50 Alkaline Phosphatase 114 IU/L (42-121) 03/31/19 23:50 Serum Total Protein 7.8 gm/dL (6.4-8.2) 03/31/19 23:50 Albumin 3.2 g/dl (3.2-5.5) 03/31/19 23:50 Globulin 4.6 gm/dL (2.3-3.5) H 03/31/19 23:50 Albumin/Globulin Ratio 0.7 (1.1-1.9) L 03/31/19 23:50 Departure - Departure Clinical Impression: Muscle cramps, Hypoglycemia Time of Disposition: 00:52 Disposition: Discharge to Home or Self Care Condition: Good Departure Forms: ED Discharge - Pt. Copy, Patient Portal Self Enrollment Diet: resume usual diet Referrals: BROOKLYN ARIAS [Primary Care Provider] - 1-2 Weeks Home Medications: Ambulatory Orders Acetaminophen W/ Codeine [Tylenol W/ CODEINE #3] 1 ea PO Q4H PRN 02/07/19 Alum & Mag Hydrox-Simethicone [Maalox Max 400-400-40 mg/5Ml] 1 lida PO Q2H PRN 02/07/19 Amino Acids-Protein Hydrolysat [Pro-Stat] 17 gm PO BID 02/07/19 Artificial Tear Solution [Genteal Tears Liquid Drop 0.1-0.2-0.3 %] 1 vicenta OPHTH BID 02/07/19 Baclofen 10 mg PO PRN PRN 02/07/19 Cholecalciferol [D 1000] 1,000 unit PO DAILY 02/07/19 Docusate Sodium [Colace] 100 mg PO DAILY 02/07/19 Emollient [Aquaphor Advanced Therapy] 41 % EX PRN PRN 02/07/19 Fenofibrate [Tricor] 145 mg PO DAILY 02/07/19 Ferrous Sulfate [Iron] 325 mg PO DAILY 02/07/19 Gabapentin 100 mg PO TID PRN 02/07/19 Insulin Glargine [Basaglar Kwikpen] 75 unit SC BID 02/07/19 Insulin Lispro (Human) [Humalog] 100 unit SC PRN PRN 02/07/19 Ipratropium [place] 0.02 % INH PRN PRN 02/07/19 Lisinopril 10 mg PO DAILY 02/07/19 Magnesium Hydroxide [[place] Milk of Magnesia] 400 mg PO DAILY 02/07/19 Melatonin 5 mg PO DAILY 02/07/19 Multiple Vitamins W/ Minerals [Prosight] 1 tab PO BID 02/07/19 Nitroglycerin 0.4 mg Tab [Nitrostat] 0.4 mg SL PRN PRN 02/07/19 Omeprazole [Prilosec Cap] 20 mg PO TID 02/07/19 Potassium Chloride Tab [K-Dur] 20 meq PO DAILY #15 tab 02/07/19 Preparation H Suppository 1 ea LA Q6HR PRN 02/07/19 QUEtiapine FUMARATE [Seroquel] 25 mg PO DAILY 02/07/19 Quetiapine Fumarate 50 mg PO DAILY 02/07/19 Saxagliptin HCl [Onglyza] 2.5 mg PO DAILY 02/07/19 Sertraline HCl 100 mg PO DAILY 02/07/19 Tramadol HCl 50 mg PO Q4H PRN 02/07/19 Triamcinolone 0.1% Oint [Kenalog 0.1% Ointment] 1 applic TOP Q12H 02/07/19 diphenhydrAMINE HCL [Benadryl] 50 mg PO PRN PRN 02/07/19 Azithromycin 500 mg PO DAILY 4 Days #4 tab 02/13/19 Cefdinir [Omnicef] 300 mg PO BID #14 cap 02/13/19 Furosemide [Lasix] 40 mg PO DAILY #30 tab 02/13/19
[2019-04-01] MEDS ORDERED: DEXTROSE 50% 25 GM/50 ML SYG IV ONE ×2 (00:34→00:35)
[2019-04-01 02:25] VITALS: BP 128/70; TEMP 97.9; O2SAT 96
== END 2019-04-01 01:45 | disposition home or self-care (01) ==
LOC: ER 23:30
DX: R25.2 Cramp and spasm (principal); E11.649 Type 2 diabetes mellitus with hypoglycemia without coma; F03.90 Unspecified dementia, unspecified severity, without behavioral disturbance, psychotic disturbance, mood disturbance, and anxiety; J44.9 Chronic obstructive pulmonary disease, unspecified; I48.91 Unspecified atrial fibrillation; E78.5 Hyperlipidemia, unspecified; I50.9 Heart failure, unspecified; I11.0 Hypertensive heart disease with heart failure; K21.9 Gastro-esophageal reflux disease without esophagitis; Z87.891 Personal history of nicotine dependence; Z79.899 Other long term (current) drug therapy; Z79.4 Long term (current) use of insulin
CPT/HCPCS: 80053; 82948; 85025; J2270; J2405; J7799

== ENCOUNTER 2019-06-03 08:00 | Emergency (ER) | payer MEDICARE, MEDICAID ==
--- NOTE | 2019-06-03 23:18 | ED.PDOC ---
History of Present Illness - General Chief Complaint: Back Pain or Injury Stated Complaint: right side arm, leg, back pain Time Seen by Provider: 06/03/19 23:17 Source: patient Exam Limitations: no limitations - History of Present Illness Initial Comments: Alen Keller 73 y/o female brought by EMS resident at [facility] with painful leg cramps mostly on her right leg and righhand >left upper and lower extremities tonight.She stated that this is her second trip to ER with same symptoms. Timing/Duration: 4-6 hours, intermittent Severity: moderate Improving Factors: nothing Worsening Factors: nothing Allergies/Adverse Reactions: Allergies Eggs or Egg-derived Products Allergy (Verified 06/03/19 22:58) Penicillins Allergy (Verified 06/03/19 22:58) Home Medications: Ambulatory Orders Acetaminophen W/ Codeine [Tylenol W/ CODEINE #3] 1 ea PO Q4H PRN 02/07/19 Alum & Mag Hydrox-Simethicone [Maalox Max 400-400-40 mg/5Ml] 1 lida PO Q2H PRN 02/07/19 Amino Acids-Protein Hydrolysat [Pro-Stat] 17 gm PO BID 02/07/19 Artificial Tear Solution [Genteal Tears Liquid Drop 0.1-0.2-0.3 %] 1 vicenta OPHTH BID 02/07/19 Baclofen 10 mg PO PRN PRN 02/07/19 Cholecalciferol [D 1000] 1,000 unit PO DAILY 02/07/19 Docusate Sodium [Colace] 100 mg PO DAILY 02/07/19 Emollient [Aquaphor Advanced Therapy] 41 % EX PRN PRN 02/07/19 Fenofibrate [Tricor] 145 mg PO DAILY 02/07/19 Ferrous Sulfate [Iron] 325 mg PO DAILY 02/07/19 Gabapentin 100 mg PO TID PRN 02/07/19 Insulin Glargine [Basaglar Kwikpen] 75 unit SC BID 02/07/19 Insulin Lispro [Humalog] 100 unit SC PRN PRN 02/07/19 Ipratropium Dequincy 0.02 % INH PRN PRN 02/07/19 Lisinopril 10 mg PO DAILY 02/07/19 Magnesium Hydroxide [[place] Milk of Magnesia] 400 mg PO DAILY 02/07/19 Melatonin 5 mg PO DAILY 02/07/19 Multiple Vitamins W/ Minerals [Prosight] 1 tab PO BID 02/07/19 Nitroglycerin 0.4 mg Tab [Nitrostat] 0.4 mg SL PRN PRN 02/07/19 Omeprazole [Prilosec Cap] 20 mg PO TID 02/07/19 Potassium Chloride Tab [K-Dur] 20 meq PO DAILY #15 tab 02/07/19 Preparation H Suppository 1 ea CO Q6HR PRN 02/07/19 QUEtiapine FUMARATE [Seroquel] 25 mg PO DAILY 02/07/19 Quetiapine Fumarate 50 mg PO DAILY 02/07/19 Saxagliptin HCl [Onglyza] 2.5 mg PO DAILY 02/07/19 Sertraline HCl 100 mg PO DAILY 02/07/19 Tramadol HCl 50 mg PO Q4H PRN 02/07/19 Triamcinolone 0.1% Oint [Kenalog 0.1% Ointment] 1 applic TOP Q12H 02/07/19 diphenhydrAMINE HCL [Benadryl] 50 mg PO PRN PRN 02/07/19 Azithromycin 500 mg PO DAILY 4 Days #4 tab 02/13/19 Cefdinir [Omnicef] 300 mg PO BID #14 cap 02/13/19 Furosemide [Lasix] 40 mg PO DAILY #30 tab 02/13/19 Review of Systems - Review of Systems Musculoskeletal: States: see HPI, other - muscle cramps All other Systems: Reviewed and Negative, No Change from Baseline Past Medical History (General) - Patient Medical History Hx Seizures: No Hx Stroke: No Hx Dementia: Yes Hx Asthma: No Hx of COPD: Yes Hx Cardiac Disorders: Yes - A fib; PVD; hyperlipidemia Hx Congestive Heart Failure: Yes Hx Pacemaker: No Hx Hypertension: Yes Hx Thyroid Disease: No Hx Diabetes: Yes Hx Gastroesophageal Reflux: Yes Hx Renal Disease: No Hx Cancer: No Hx of HIV: No Hx Hepatitis C: No Hx MRSA: No Surgical History: no surgical history - Vaccination History Hx Influenza Vaccination: Yes Hx Pneumococcal Vaccination: Yes - Social History Hx Tobacco Use: Yes Hx Alcohol Use: Yes Hx Substance Use: No Hx Substance Use Treatment: No Hx Depression: No Hx Physical Abuse: No Hx Emotional Abuse: No - Activities of Daily Living Intermediate/Assisted Living (if applicable):: [facility] - Female History Patient : No Family Medical History - Family History Mother Family History: Unknown Living Status: Unknown Physical Exam - Physical Exam General Appearance: Alert, No apparent distress, Other - in pain due to cramping Eye Exam: bilateral normal Ears, Nose, Throat: hearing grossly normal, normal ENT inspection Neck: supple, normal inspection Respiratory: lungs clear, normal breath sounds Cardiovascular/Chest: normal peripheral pulses, regular rate, rhythm, no gallop, no murmur Peripheral Pulses: radial,right: 2+, radial,left: 2+ Gastrointestinal/Abdominal: non tender, soft, no organomegaly Extremity: normal range of motion, pedal edema - 2 + Neurologic: alert, oriented x 3 Skin Exam: normal color, warm/dry, other - stasis dermatitis Progress - Progress Progress: 06/04/19 01:44 Vital Signs - 8 hr 06/03/19 22:40 Temperature 98.3 F Pulse Rate [ 93 H monitor] Respiratory 20 Rate Blood Pressure 173/116 [Left Arm] O2 Sat by Pulse 94 L Oximetry - Results/Orders Results/Orders: 06/03/19 23:44 IV Care:Saline Lock per Protoc QSHIFT 06/04/19 00:53 Magnesium Sulfate Premix 2Gm 2 gm Premix Bag 1 bag IVPB ONCE Laboratory Results - last 24 hr 06/03/19 06/03/19 06/04/19 23:33 23:33 00:08 WBC 8.6 RBC 4.75 Hgb 15.0 Hct 43.6 MCV 91.7 MCH 31.5 H MCHC 34.4 RDW 14.1 Plt Count 218 MPV 7.4 Absolute Neuts (auto) 6.70 Absolute Lymphs (auto) 1.00 Absolute Monos (auto) 0.70 Absolute Eos (auto) 0.00 Absolute Basos (auto) 0.10 Neutrophils % 78.4 H Lymphocytes % 12.0 L Monocytes % 8.5 Eosinophils % 0.5 L Basophils % 0.6 Sodium 131 L Potassium 3.7 Chloride 93 L Carbon Dioxide 28 Anion Gap 13.7 BUN 16 Creatinine 1.32 H BUN/Creatinine Ratio 12.1 Random Glucose 110 H Serum Osmolality 264.5 L Calcium 8.8 Magnesium 1.6 L Total Bilirubin 1.6 H AST 28 ALT 16 Alkaline Phosphatase 84 Serum Total Protein 7.2 Albumin 3.3 Globulin 3.9 H Albumin/Globulin Ratio 0.8 L - EKG/XRAY/CT XRAY: chest - no acute abnormalities noted Departure - Departure Clinical Impression: Muscle cramps, Electrolyte imbalance, Hypomagnesemia Time of Disposition: 01:46 Disposition: Discharge to SNF Condition: Fair Departure Forms: ED Discharge - Pt. Copy, Patient Portal Self Enrollment Instructions: Nocturnal (Nighttime) Leg Cramps (DC), Nocturnal (Nighttime) Leg Cramps Referrals: BROOKLYN ARIAS [Primary Care Provider] - 1-2 Weeks Home Medications: Ambulatory Orders Acetaminophen W/ Codeine [Tylenol W/ CODEINE #3] 1 ea PO Q4H PRN 02/07/19 Alum & Mag Hydrox-Simethicone [Maalox Max 400-400-40 mg/5Ml] 1 lida PO Q2H PRN 02/07/19 Amino Acids-Protein Hydrolysat [Pro-Stat] 17 gm PO BID 02/07/19 Artificial Tear Solution [Genteal Tears Liquid Drop 0.1-0.2-0.3 %] 1 vicenta OPHTH BID 02/07/19 Baclofen 10 mg PO PRN PRN 02/07/19 Cholecalciferol [D 1000] 1,000 unit PO DAILY 02/07/19 Docusate Sodium [Colace] 100 mg PO DAILY 02/07/19 Emollient [Aquaphor Advanced Therapy] 41 % EX PRN PRN 02/07/19 Fenofibrate [Tricor] 145 mg PO DAILY 02/07/19 Ferrous Sulfate [Iron] 325 mg PO DAILY 02/07/19 Gabapentin 100 mg PO TID PRN 02/07/19 Insulin Glargine [Basaglar Kwikpen] 75 unit SC BID 02/07/19 Insulin Lispro [Humalog] 100 unit SC PRN PRN 02/07/19 Ipratropium Dequincy 0.02 % INH PRN PRN 02/07/19 Lisinopril 10 mg PO DAILY 02/07/19 Magnesium Hydroxide [[place] Milk of Magnesia] 400 mg PO DAILY 02/07/19 Melatonin 5 mg PO DAILY 02/07/19 Multiple Vitamins W/ Minerals [Prosight] 1 tab PO BID 02/07/19 Nitroglycerin 0.4 mg Tab [Nitrostat] 0.4 mg SL PRN PRN 02/07/19 Omeprazole [Prilosec Cap] 20 mg PO TID 02/07/19 Potassium Chloride Tab [K-Dur] 20 meq PO DAILY #15 tab 02/07/19 Preparation H Suppository 1 ea CO Q6HR PRN 02/07/19 QUEtiapine FUMARATE [Seroquel] 25 mg PO DAILY 02/07/19 Quetiapine Fumarate 50 mg PO DAILY 02/07/19 Saxagliptin HCl [Onglyza] 2.5 mg PO DAILY 02/07/19 Sertraline HCl 100 mg PO DAILY 02/07/19 Tramadol HCl 50 mg PO Q4H PRN 02/07/19 Triamcinolone 0.1% Oint [Kenalog 0.1% Ointment] 1 applic TOP Q12H 02/07/19 diphenhydrAMINE HCL [Benadryl] 50 mg PO PRN PRN 02/07/19 Azithromycin 500 mg PO DAILY 4 Days #4 tab 02/13/19 Cefdinir [Omnicef] 300 mg PO BID #14 cap 02/13/19 Furosemide [Lasix] 40 mg PO DAILY #30 tab 02/13/19 Additional Instructions: NEED TO GIVE ELECTROLYTE ORAL SOLUTION or PEDIALYTE one glass am and pm daily;Continue with all home medications;Continue with all home medications
[2019-06-03] MEDS ORDERED: KETOROLAC TROMETHAMINE INJ 30 MG/ML VIAL IM ONE (23:19)
[2019-06-03] MEDS ORDERED: ORPHENADRINE CITRATE 30 MG/ML AMP IM ONE (23:19)
[2019-06-03] MEDS ORDERED: LACTATED RINGERS 1,000 ML IVS ONE (23:44)
[2019-06-03] MEDS ORDERED: SODIUM CHLORIDE 0.9% 500ML 500 ML IVS ONE (23:49)
[2019-06-03] MEDS ORDERED: fentaNYL CITRATE INJ 50 MCG/ML AMP IV ONE (23:57)
[2019-06-04] MEDS ORDERED: SODIUM CHLORIDE 0.9% 1000ML 1,000 ML ONE (00:03)
[2019-06-04] MEDS ORDERED: SODIUM CHLORIDE 0.9% 1000ML 500 ML IVS ONE (00:12)
[2019-06-04] MEDS ORDERED: MAGNESIUM SULFATE PREMIX 2GM 2 GM in PREMIX BAG 1 BAG IVPB ONE (00:53)
[2019-06-04] MEDS ORDERED: MAGNESIUM SULFATE PREMIX 2GM 50 ML IVPB ONE (00:57)
--- NOTE | 2019-06-04 01:40 | RAD ---
EXAM: Single view chest. INDICATION: Shortness of breath. COMPARISON: Chest x-ray: 03/08/2019. FINDINGS: There is right perihilar subsegmental atelectasis. The lungs are otherwise clear. The heart is enlarged. There is no pneumothorax or pleural effusion. The bones are unchanged. IMPRESSION: 1. No acute cardiopulmonary process. Electronically signed by: Pedro Luis Mcdonald MD 06/04/2019 1:38 AM CDT Workstation: [id number]
--- NOTE | 2019-06-04 17:55 | RAD ---
EXAM DESCRIPTION: Chest,1 View CLINICAL HISTORY: 73 years Female, AMS COMPARISON: Chest radiograph same day. TECHNIQUE: AP portable chest. FINDINGS/IMPRESSION: No significant interval change. Right midlung mild subsegmental atelectasis. Mild central pulmonary vascular. No focal consolidation, significant pneumothorax or pleural effusion seen. The heart is mildly enlarged. No acute osseous abnormality. Electronically signed by: Eliceo Naik DO 06/04/2019 5:54 PM CDT
[2019-06-04] MEDS ORDERED: INSULIN, REG.(HUMAN) 100 U/ML VIAL SUBCU ONE (18:23)
--- NOTE | 2019-06-04 19:55 | CT ---
EXAM: CT Head Without Intravenous Contrast CLINICAL HISTORY: The patient is 73 years old and is Female; AMS TECHNIQUE: Axial computed tomography images of the head/brain without intravenous contrast. Sagittal and coronal reformatted images were created and reviewed. This CT exam was performed using one or more of the following dose reduction techniques: automated exposure control, adjustment of the mA and/or kV according to patient size, and/or use of iterative reconstruction technique. COMPARISON: No relevant prior studies available. FINDINGS: Limitations: Evaluation limited due to patient motion and beam hardening artifact. Brain: Unremarkable. No hemorrhage. No significant white matter disease. No edema. Ventricles: Unremarkable. No ventriculomegaly. Bones/joints: Unremarkable. No acute fracture. Soft tissues: Unremarkable. Sinuses: Unremarkable as visualized. No acute sinusitis. Mastoid air cells: Unremarkable as visualized. No mastoid effusion. IMPRESSION: No acute intracranial findings. Electronically signed by: Ben Frazier MD 06/04/2019 7:54 PM CDT
--- NOTE | 2019-06-04 20:16 | ED.PDOC ---
History of Present Illness - General Chief Complaint: Neuro Symptoms/Deficits Stated Complaint: altered mental status Time Seen by Provider: 06/04/19 17:09 Source: patient Exam Limitations: no limitations - History of Present Illness Initial Comments: Patient presents from [facility] after staff reported AMS. She apparently was very sleepy. She would awaken and be conversational then want to go back to sleep again. No recent medication changes. Patient was here last night with arm pain. No other complaints. Patient verifies the NH report. Timing/Duration: unsure Severity: moderate Improving Factors: nothing Worsening Factors: nothing Associated Symptoms: denies symptoms Allergies/Adverse Reactions: Allergies Eggs or Egg-derived Products Allergy (Verified 06/03/19 22:58) Penicillins Allergy (Verified 06/03/19 22:58) Home Medications: Ambulatory Orders Acetaminophen W/ Codeine [Tylenol W/ CODEINE #3] 1 ea PO Q4H PRN 02/07/19 Alum & Mag Hydrox-Simethicone [Maalox Max 400-400-40 mg/5Ml] 1 lida PO Q2H PRN 02/07/19 Amino Acids-Protein Hydrolysat [Pro-Stat] 17 gm PO BID 02/07/19 Artificial Tear Solution [Genteal Tears Liquid Drop 0.1-0.2-0.3 %] 1 vicenta OPHTH BID 02/07/19 Baclofen 10 mg PO PRN PRN 02/07/19 Cholecalciferol [D 1000] 1,000 unit PO DAILY 02/07/19 Docusate Sodium [Colace] 100 mg PO DAILY 02/07/19 Emollient [Aquaphor Advanced Therapy] 41 % EX PRN PRN 02/07/19 Fenofibrate [Tricor] 145 mg PO DAILY 02/07/19 Ferrous Sulfate [Iron] 325 mg PO DAILY 02/07/19 Gabapentin 100 mg PO TID PRN 02/07/19 Insulin Glargine [Basaglar Kwikpen] 75 unit SC BID 02/07/19 Insulin Lispro [Humalog] 100 unit SC PRN PRN 02/07/19 Ipratropium [place] 0.02 % INH PRN PRN 02/07/19 Lisinopril 10 mg PO DAILY 02/07/19 Magnesium Hydroxide [[place] Milk of Magnesia] 400 mg PO DAILY 02/07/19 Melatonin 5 mg PO DAILY 02/07/19 Multiple Vitamins W/ Minerals [Prosight] 1 tab PO BID 02/07/19 Nitroglycerin 0.4 mg Tab [Nitrostat] 0.4 mg SL PRN PRN 02/07/19 Omeprazole [Prilosec Cap] 20 mg PO TID 02/07/19 Potassium Chloride Tab [K-Dur] 20 meq PO DAILY #15 tab 02/07/19 Preparation H Suppository 1 ea WA Q6HR PRN 02/07/19 QUEtiapine FUMARATE [Seroquel] 25 mg PO DAILY 02/07/19 Quetiapine Fumarate 50 mg PO DAILY 02/07/19 Saxagliptin HCl [Onglyza] 2.5 mg PO DAILY 02/07/19 Sertraline HCl 100 mg PO DAILY 02/07/19 Tramadol HCl 50 mg PO Q4H PRN 02/07/19 Triamcinolone 0.1% Oint [Kenalog 0.1% Ointment] 1 applic TOP Q12H 02/07/19 diphenhydrAMINE HCL [Benadryl] 50 mg PO PRN PRN 02/07/19 Azithromycin 500 mg PO DAILY 4 Days #4 tab 02/13/19 Cefdinir [Omnicef] 300 mg PO BID #14 cap 02/13/19 Furosemide [Lasix] 40 mg PO DAILY #30 tab 02/13/19 Review of Systems - Review of Systems Constitutional: States: see HPI EENTM: States: no symptoms reported Respiratory: States: no symptoms reported Cardiology: States: no symptoms reported Gastrointestinal/Abdominal: States: no symptoms reported Genitourinary: States: no symptoms reported Musculoskeletal: States: no symptoms reported Skin: States: no symptoms reported Neurological: States: see HPI Endocrine: States: no symptoms reported Hematologic/Lymphatic: States: no symptoms reported Past Medical History (General) - Patient Medical History Hx Seizures: No Hx Stroke: No Hx Dementia: Yes Hx Asthma: No Hx of COPD: Yes Hx Cardiac Disorders: Yes - A fib; PVD; hyperlipidemia Hx Congestive Heart Failure: Yes Hx Pacemaker: No Hx Hypertension: Yes Hx Thyroid Disease: No Hx Diabetes: Yes Hx Gastroesophageal Reflux: Yes Hx Renal Disease: No Hx Cancer: No Hx of HIV: No Hx Hepatitis C: No Hx MRSA: No - Vaccination History Hx Tetanus, Diphtheria Vaccination: Yes Hx Influenza Vaccination: Yes Hx Pneumococcal Vaccination: Yes - Social History Hx Tobacco Use: Yes Hx Alcohol Use: Yes Hx Substance Use: No Hx Substance Use Treatment: No Hx Depression: No Hx Physical Abuse: No Hx Emotional Abuse: No - Activities of Daily Living Residential/Assisted Living (if applicable):: [facility] - Female History Patient : No Family Medical History - Family History Mother Family History: Unknown Living Status: Unknown Physical Exam - Physical Exam General Appearance: Other - sleepy Eye Exam: bilateral normal Ears, Nose, Throat: normal ENT inspection Neck: non-tender, full range of motion, supple Respiratory: lungs clear, normal breath sounds Cardiovascular/Chest: normal peripheral pulses, regular rate, rhythm, no edema Gastrointestinal/Abdominal: normal bowel sounds, non tender, soft Back Exam: normal inspection, no CVA tenderness Extremity: normal range of motion, non-tender, normal inspection Neurologic: head miller II-XII nml as tested, no motor/sensory deficits, alert, normal mood/affect, oriented x 3 Skin Exam: normal color Lymphatic: no adenopathy Progress - Progress Progress: 06/04/19 20:28 Laboratory Tests 06/04/19 06/04/19 06/04/19 17:14 17:35 17:35 WBC 6.4 RBC 4.81 Hgb 15.2 Hct 44.9 MCV 93.4 MCH 31.5 H MCHC 33.7 RDW 14.3 Plt Count 183 MPV 7.6 Absolute Neuts (auto) 5.10 Absolute Lymphs (auto) 0.70 L Absolute Monos (auto) 0.60 Absolute Eos (auto) 0.10 Absolute Basos (auto) 0.00 Neutrophils % 78.9 H Lymphocytes % 11.0 L Monocytes % 8.6 Eosinophils % 1.2 Basophils % 0.3 PT INR PTT (SP) Sodium 132 L Potassium 4.3 Chloride 93 L Carbon Dioxide 26 Anion Gap 17.3 BUN 20 H Creatinine 1.06 BUN/Creatinine Ratio 18.9 Random Glucose 229 H D Serum Osmolality 274.4 L Calcium 9.1 Total Bilirubin 1.3 H AST 33 ALT 17 Alkaline Phosphatase 91 Creatine Kinase CK-MB (CK-2) CK-MB (CK-2) % Troponin I B-Natriuretic Peptide Serum Total Protein 7.3 Albumin 3.2 Globulin 4.1 H Albumin/Globulin Ratio 0.8 L TSH 1.02 Thyroxine (T4) 10.95 Urine Color Yellow Urine Appearance Clear Urine pH 6.5 Ur Specific [place] 1.015 Urine Protein Negative Urine Glucose (UA) Negative Urine Ketones Negative Urine Blood Moderate H Urine Nitrite Negative Urine Bilirubin Negative Urine Urobilinogen 1.0 Ur Leukocyte Esterase Negative Urine RBC 20-30 H Urine WBC 1-3 Ur Epithelial Cells 3-5 Urine Bacteria Rare 06/04/19 06/04/19 06/04/19 17:35 17:35 17:35 WBC RBC Hgb Hct MCV MCH MCHC RDW Plt Count MPV Absolute Neuts (auto) Absolute Lymphs (auto) Absolute Monos (auto) Absolute Eos (auto) Absolute Basos (auto) Neutrophils % Lymphocytes % Monocytes % Eosinophils % Basophils % PT INR PTT (SP) Sodium Potassium Chloride Carbon Dioxide Anion Gap BUN Creatinine BUN/Creatinine Ratio Random Glucose Serum Osmolality Calcium Total Bilirubin AST ALT Alkaline Phosphatase Creatine Kinase 189 H CK-MB (CK-2) 7.8 H* CK-MB (CK-2) % 4.13 Troponin I 0.04 B-Natriuretic Peptide 427.0 H* Serum Total Protein Albumin Globulin Albumin/Globulin Ratio TSH Thyroxine (T4) Cancelled Urine Color Urine Appearance Urine pH Ur Specific [place] Urine Protein Urine Glucose (UA) Urine Ketones Urine Blood Urine Nitrite Urine Bilirubin Urine Urobilinogen Ur Leukocyte Esterase Urine RBC Urine WBC Ur Epithelial Cells Urine Bacteria 06/04/19 17:35 WBC RBC Hgb Hct MCV MCH MCHC RDW Plt Count MPV Absolute Neuts (auto) Absolute Lymphs (auto) Absolute Monos (auto) Absolute Eos (auto) Absolute Basos (auto) Neutrophils % Lymphocytes % Monocytes % Eosinophils % Basophils % PT 12.0 H INR 1.20 H PTT (SP) 35.3 H Sodium Potassium Chloride Carbon Dioxide Anion Gap BUN Creatinine BUN/Creatinine Ratio Random Glucose Serum Osmolality Calcium Total Bilirubin AST ALT Alkaline Phosphatase Creatine Kinase CK-MB (CK-2) CK-MB (CK-2) % Troponin I B-Natriuretic Peptide Serum Total Protein Albumin Globulin Albumin/Globulin Ratio TSH Thyroxine (T4) Urine Color Urine Appearance Urine pH Ur Specific [place] Urine Protein Urine Glucose (UA) Urine Ketones Urine Blood Urine Nitrite Urine Bilirubin Urine Urobilinogen Ur Leukocyte Esterase Urine RBC Urine WBC Ur Epithelial Cells Urine Bacteria CT head negative. No laboratory explanation for the symptoms. Question polypharmacy. Patient admitted for observation by Tonia Powell. Departure - Departure Clinical Impression: Altered mental status Disposition: Admit Patient Condition: Fair Departure Forms: ED Discharge - Pt. Copy, Patient Portal Self Enrollment Diet: other - as per hospitalist Activity: as per physical therapy Referrals: BROOKLYN ARIAS [Primary Care Provider] - 1-2 Weeks Home Medications: Ambulatory Orders Acetaminophen W/ Codeine [Tylenol W/ CODEINE #3] 1 ea PO Q4H PRN 02/07/19 Alum & Mag Hydrox-Simethicone [Maalox Max 400-400-40 mg/5Ml] 1 lida PO Q2H PRN 02/07/19 Amino Acids-Protein Hydrolysat [Pro-Stat] 17 gm PO BID 02/07/19 Artificial Tear Solution [Genteal Tears Liquid Drop 0.1-0.2-0.3 %] 1 vicenta OPHTH BID 02/07/19 Baclofen 10 mg PO PRN PRN 02/07/19 Cholecalciferol [D 1000] 1,000 unit PO DAILY 02/07/19 Docusate Sodium [Colace] 100 mg PO DAILY 02/07/19 Emollient [Aquaphor Advanced Therapy] 41 % EX PRN PRN 02/07/19 Fenofibrate [Tricor] 145 mg PO DAILY 02/07/19 Ferrous Sulfate [Iron] 325 mg PO DAILY 02/07/19 Gabapentin 100 mg PO TID PRN 02/07/19 Insulin Glargine [Basaglar Kwikpen] 75 unit SC BID 02/07/19 Insulin Lispro [Humalog] 100 unit SC PRN PRN 02/07/19 Ipratropium [place] 0.02 % INH PRN PRN 02/07/19 Lisinopril 10 mg PO DAILY 02/07/19 Magnesium Hydroxide [[place] Milk of Magnesia] 400 mg PO DAILY 02/07/19 Melatonin 5 mg PO DAILY 02/07/19 Multiple Vitamins W/ Minerals [Prosight] 1 tab PO BID 02/07/19 Nitroglycerin 0.4 mg Tab [Nitrostat] 0.4 mg SL PRN PRN 02/07/19 Omeprazole [Prilosec Cap] 20 mg PO TID 02/07/19 Potassium Chloride Tab [K-Dur] 20 meq PO DAILY #15 tab 02/07/19 Preparation H Suppository 1 ea WA Q6HR PRN 02/07/19 QUEtiapine FUMARATE [Seroquel] 25 mg PO DAILY 02/07/19 Quetiapine Fumarate 50 mg PO DAILY 02/07/19 Saxagliptin HCl [Onglyza] 2.5 mg PO DAILY 02/07/19 Sertraline HCl 100 mg PO DAILY 02/07/19 Tramadol HCl 50 mg PO Q4H PRN 02/07/19 Triamcinolone 0.1% Oint [Kenalog 0.1% Ointment] 1 applic TOP Q12H 02/07/19 diphenhydrAMINE HCL [Benadryl] 50 mg PO PRN PRN 02/07/19 Azithromycin 500 mg PO DAILY 4 Days #4 tab 02/13/19 Cefdinir [Omnicef] 300 mg PO BID #14 cap 02/13/19 Furosemide [Lasix] 40 mg PO DAILY #30 tab 02/13/19
[2019-06-04] MEDS ORDERED: ACETAMINOPHEN 325 MG TAB PO PRN (21:53)
[2019-06-04] MEDS ORDERED: ONDANSETRON INJ 4 MG/2 ML VIAL IV PRN (21:53)
[2019-06-04] MEDS ORDERED: SODIUM CHLORIDE 0.9% (FLUSH) 10 ML SYG IV PRN (21:53)
[2019-06-04] MEDS ORDERED: GLUCAGON INJ 1 MG VIAL SUBCU PRN (21:57)
[2019-06-04] MEDS ORDERED: DEXTROSE 50% 25 GM/50 ML SYG IV PRN (21:57)
[2019-06-04] MEDS ORDERED: IV SET AND CAP CHANGE INJ INJ SCH (22:00)
[2019-06-05] MEDS ORDERED: PANTOPRAZOLE SODIUM TAB 40 MG PO SCH (06:30)
[2019-06-05] MEDS: INSULIN LISPRO 100 UNITS/ML PEN SUBCU SCH ×2 (07:05→12:16)
[2019-06-05] MEDS ORDERED: SODIUM CHLORIDE 0.9% (FLUSH) 10 ML SYG IV SCH (09:00)
[2019-06-05 09:04] VITALS: O2SAT 95
--- NOTE | 2019-06-05 11:44 | SSS ---
SUPERVISING PHYSICIAN: Sukhdeep Jacobs MD DATE OF ADMISSION: 06/04/19 DATE OF DISCHARGE: 06/05/19 DISCHARGE DIAGNOSIS: 1. Lethargy and altered mental status changes with no change in medications. 2. History of congestive heart failure of unknown etiology. There is no current echocardiogram to review on the chart. There are no signs or symptoms of exacerbation. Her BNP on admission was 427. Her baseline BNP is approximately 400. 3. Hyperbilirubinemia of unknown etiology. 4. Diabetes mellitus, type 2. 5. Chronic obstructive pulmonary disease in a chronic smoker without signs or symptoms of exacerbation. 6. Coronary artery disease. 7. Hypertension on medications. 8. History of transient ischemic attacks. HISTORY OF PRESENT ILLNESS: This is a 73-year-old female patient who lives at [facility]. She has apparently been very sleepy for a couple of days and had a difficult time awakening. She also had some mild mental status changes and had a difficult time answering questions in the Emergency Room. Her initial vital signs were temperature 97.5, heart rate 97, blood pressure 170/84, respiratory rate 20, O2 saturation 99% on 3 liters nasal cannula. Lab was drawn and her sodium was 132, potassium 4.3, chloride 93, carbon dioxide 26, BUN 20, creatinine 1.06, glucose 329, calcium 9.1, total bilirubin 1.3. Creatinine kinase 189, CK-MB 7.8, troponin 0.04. BNP 427. WBCs 6,400, hemoglobin 15.2, hematocrit 44.9. She did have a mild left shift on her differential. Her urinalysis was unremarkable. Chest x-ray showed no significant interval change with right midlung mild subsegmental atelectasis. Head CT showed no acute intracranial findings. She was given some insulin in the Emergency Room due to her elevated blood sugar. I was called for hospital admission. HOSPITAL COURSE: The patient was placed in Observation for neuro monitoring overnight. None of her medications were changed. This morning, her mental status is back at baseline. She has been walking in the hallways. She has no acute complaints of shortness of breath, nausea, vomiting, lethargy or chest pain. She will be discharged back to [facility] in stable condition. LABORATORY: CBC remained unremarkable this morning. Bilirubin 1.3, sodium slightly low at 132 with slightly low chloride at 95. RADIOLOGY: As per history of present illness. DISCHARGE PLAN: The patient will be discharged back to [facility] in good condition. She is to resume her previous diet as well as her previous physical activity and to increase it as tolerated. She is to followup with Dr. Hernandez within 1 to 2 weeks. There have been no changes on her medications and she is to resume her previous prescriptions as previously ordered. Her neuro checks were improved overnight and I am not sure if she had a transient ischemic attack or if there was some medication issues, but at this point she is clinically improved. She is to call Dr. Hernandez or return to the hospital for any problems or complications. DISCHARGE MEDICATIONS: 1. Acetaminophen. 2. TriCor. 3. Tramadol. 4. Sertraline. 5. Seroquel. 6. Preparation H. 7. Nitroglycerin. 8. Onglyza. 9. Melatonin. 10. Milk of Magnesia. 11. Maalox. 12. Lisinopril. 13. Ipratropium bromide. 14. Gabapentin. 15. Ferrous sulfate. 16. Insulin Lispro. 17. Diphenhydramine. 18. Docusate sodium. 19. Glargine insulin. 20. Artificial tears. 21. Aquaphor topical. 21. Baclofen. 22. Vitamin D. 23. Potassium chloride. 24. Furosemide. 25. Acidophilous. 26. Oral electrolytes. 27. Promethazine. 28. Multivitamins. 29. Amino acids. 30. Bactrim. #[id number] MTDD
[2019-06-05 12:50] VITALS: BP 160/97; TEMP 97.5
[2019-06-05] MEDS ORDERED: ENOXAPARIN SODIUM 40 MG/0.4 ML SYG SUBCU SCH (21:00)
== END 2019-06-04 21:46 | disposition still patient (30) ==
LOC: ER 08:00 → MS 06-04 20:48 → UNDOADMOB 06-04 20:48 → ER 06-04 21:46 → UNDODISOB 06-05 12:00
DX: R41.82 Altered mental status, unspecified (principal); R53.81 Other malaise; I11.0 Hypertensive heart disease with heart failure; I50.9 Heart failure, unspecified; E80.6 Other disorders of bilirubin metabolism; E11.65 Type 2 diabetes mellitus with hyperglycemia; E87.1 Hypo-osmolality and hyponatremia; J44.9 Chronic obstructive pulmonary disease, unspecified; F17.210 Nicotine dependence, cigarettes, uncomplicated; I25.10 Atherosclerotic heart disease of native coronary artery without angina pectoris; F03.90 Unspecified dementia, unspecified severity, without behavioral disturbance, psychotic disturbance, mood disturbance, and anxiety; I45.2 Bifascicular block; I48.91 Unspecified atrial fibrillation; E11.51 Type 2 diabetes mellitus with diabetic peripheral angiopathy without gangrene; E78.5 Hyperlipidemia, unspecified; K21.9 Gastro-esophageal reflux disease without esophagitis; Z86.73 Personal history of transient ischemic attack (TIA), and cerebral infarction without residual deficits; Z79.4 Long term (current) use of insulin; Z79.899 Other long term (current) drug therapy
CPT/HCPCS: 36415; 70450; 71045; 80053; 81001; 82550; 82553; 82948; 83735; 83880; 84436; 84443; 84484; 85025; 85610; 85730; 93005; 94760; 96361; 96365; 96372; 96375; 99284; 99285; G0378; J1885; J2360; J3010; J3475; J7030

== ENCOUNTER → 2019-06-25 | Outpatient (CLI) | payer MEDICARE, MEDICAID | LOC: LAB.O 10:00 | PROVIDERS: ATTEND Obstetrics & Gynecology | DX: E11.22 Type 2 diabetes mellitus with diabetic chronic kidney disease (principal); R19.00 Intra-abdominal and pelvic swelling, mass and lump, unspecified site; D50.9 Iron deficiency anemia, unspecified; N90.0 Mild vulvar dysplasia; E46 Unspecified protein-calorie malnutrition; E87.6 Hypokalemia; I50.30 Unspecified diastolic (congestive) heart failure; E78.49 Other hyperlipidemia; N95.0 Postmenopausal bleeding ==